=== PATIENT | female | born 2005 | race Caucasian/White ===

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

== ENCOUNTER 2024-05-03 11:13 | Emergency (ER) | payer BC, SELFPAY ==
[2024-05-03 11:45] VITALS: BP 135/86; PULSE 97; RESP 18; TEMP 36.9; O2SAT 98; BMI 38.8
--- NOTE | 2024-05-03 11:54 | ED_ITS ---
Discharge Plan Disposition Patient Disposition: Home, Self-Care Condition: Good Prescriptions Prescriptions: New azithromycin [Zithromax Z-Will] 250 mg tablet See Rx Instructions .ROUTE .COMPLEX 5 Days Qty: 6 0RF Rx Instructions: For 250 mg dose pack: take 500 mg today (day 1), then 250 mg for 4 days (days 2-5) No Action Kyleena 17.5 mcg/24 hr (5 yrs) 19.5 mg intrauterine device 1 device intrauterine ONCE aripiprazole [Abilify] 5 mg tablet 10 mg PO DAILY Referrals Follow up/Referrals: Nina Melara APRN [Primary Care Provider] - See instructions Activity Restrictions/Add. Instructions Additional Instructions/Restrictions: *Monitor Temp, Over the counter Motrin or Tylenol as directed/as needed Tylenol every 4 hours and Motrin every 6 hours (as long as your family doctor has told you that you can take it) for fever or pain. and straight to ER if unable to lower temp less than 101.0 after medication given *Warm salt water gargles may help to soothe the throat *Throat Lozenges? *Warm fluids like tea with honey may help to soothe the throat? *Sleep elevated *Humidifier/Vaporizer Your throat swab was sent for culture. Those results are typically sent to your primary care. Be sure to follow up in 2-3 days with your family doctor/primary care physician if no improvement so they can review those result and treat if necessary. If you don?t have a primary care doctor, I recommend you get one but in the mean time, you will have to return to a walk in clinic Follow up IMMEDIATELY for new or worsening symptoms or no Noticeable improvement over the next 48-72 hours. 911 for difficulty breathing or swallowing Clinical Impressions Clinical Impression: Pharyngitis Qualifiers: Pharyngitis/tonsillitis etiology: unspecified etiology Qualified Code(s): J02.9 - Acute pharyngitis, unspecified Instructions Patient Instructions: Sore Throat, Azithromycin Print Language Print Language: [place]ian Discharge ED Provider: Silvana Us [facility] General Stated complaint: sore throat, fever, abd pain, B/A, H/A Time Seen by Provider: 05/03/24 11:54 History of Present Illness Provider Complaint: Patient states that she hasnt felt well for several days with sore throat, headache, body aches, upset stomach and over all not feeling well States that her throat has continued to get worse and hurts when she swallows so today when it was still bothering her she came in to get it checked feels like she has strep throat Related Data Home Medications ?Medication ?Instructions ?Recorded ?Confirmed aripiprazole 5 mg tablet (Abilify) 10 mg PO DAILY Anxiety 11/03/23 05/03/24 levonorgestrel 17.5 mcg/24 hr (up 1 device intrauterine ONCE 11/03/23 05/03/24 to 5 yrs) 19.5mg intrauterine device (Kyleena) Previous Rx's ?Medication ?Instructions ?Recorded azithromycin 250 mg tablet See Rx Instructions PO .COMPLEX 5 05/03/24 (Zithromax Z-Will) days #6 tabs Allergies Allergy/AdvReac Type Severity Reaction Status Date / Time amoxicillin Allergy Verified 11/03/23 11:18 Penicillins Allergy Verified 11/03/23 11:18 [facility] Disclaimer: The information contained in this section may have been updated after the patient was seen, as this information can be updated by other users. Medical History (Updated 05/03/24 @ 12:08 by Silvana Us APRN) Pelvic pain in female IUD check up Encounter for IUD insertion Dysmenorrhea Abnormal uterine bleeding Surgical History [place] teeth removed Family History Other Diabetes Hyperlipidemia Social History Smoking Status: Never smoker alcohol intake: never current occupational status: student Travel in the last 8 weeks: None Have you lived/traveled outside [place] in past 30 days?: No Contact w/someone who lives/traveled outside [place] past 30 days?: No Exposure to someone with infectious disease in past 14 days?: No Do you have a fever (greater than 100.4 F or 38 C)?: Yes Have you tested positive for COVID-19: No Exposed to someone with COVID-19 in past 14 days?: No Do you have a sore throat?: Yes Do you have a cough?: Yes Do you have any weakness?: No Do you have any diarrhea?: No Are you experiencing any unusual bleeding?: No Do you have any muscle aches/pain?: Yes Do you have any abdominal pain?: Yes Are you experiencing loss of taste or smell?: No ROS Obtained: Yes All systems reviewed & no additional complaints except as documented and Yes Systems reviewed as appropriate & no additional complaints except as documented Constitutional Constitutional: Reports system reviewed and no additional complaints, except as documented, Reports as per HPI, Reports body ache, Reports chills and Reports headache(s) ENT Ears, Nose, Mouth, and Throat: Reports system reviewed and no additional complaints, except as documented, Reports as per HPI, Reports headache(s) and Reports sore throat Cardiovascular Cardiovascular: Reports system reviewed and no additional complaints, except as documented and Reports as per HPI Respiratory Respiratory: Reports system reviewed and no additional complaints, except as documented and Reports as per HPI Gastrointestinal Gastrointestingal: Reports system reviewed and no additional complaints, except as documented, as per HPI and nausea Neurologic Neurologic: Reports headache(s) Physical Exam General General appearance: alert and in no apparent distress ENT ENT exam: Present mucous membranes moist Expanded ENT Exam Nose exam: Absent sinus tenderness Throat exam: Present tonsillar erythema Respiratory Respiratory exam: Present normal lung sounds bilaterally; Absent respiratory distress or wheezes Cardiovascular Cardiovascular exam: Present regular rate, normal rhythm and normal heart sounds Abdominal Exam Abdominal exam: Present soft and normal bowel sounds; Absent distention, tenderness, guarding or rebound Neurological Exam Neurological exam: Present alert, oriented X3 and normal gait Medical Decision Making Medical Records Screening: Per USPSTF and CDC recommendations, given the prevalence of disease in our region, it is our hospital?s policy to screen for HIV and viral Hepatitis for all patients aged 18 and over and those with ongoing risk factors. Javan Inquiry Pt receiving controlled substance: No Javan was queried for this patient: No Lab Data Lab results reviewed: Yes I reviewed the patient's lab results.
[2024-05-03 12:07] LABS: UTC Influenza A Antigen Negative (Negative); UTC Influenza B Antigen Negative (Negative); UTC Strep Screen (Rapid) Negative (Negative)
[2024-05-03 12:08] VITALS: BP 135/86; PULSE 97; RESP 18; TEMP 36.9; O2SAT 98
== END 2024-05-03 12:10 | disposition home or self-care (01) ==
PROVIDERS: Emergency Provider Nurse Practitioner; PCP Nurse Practitioner Family
DX: J02.9 Acute pharyngitis, unspecified (principal)
CPT/HCPCS: 87804; 87880; 99213; G0381

== ENCOUNTER 2024-08-24 07:44 | Outpatient (CLI) | payer BC, SELFPAY ==
--- NOTE | 2024-08-24 08:00 | US_ITS ---
PROCEDURE: US TRANSVAGINAL CLINICAL INDICATION: Needs for IUD placement/pelvic pain COMPARISON: CT CT ABDOMEN PELVIS W CON from 07/02/2022 FINDINGS: Transvaginal sonographic images of the pelvis were obtained. UTERUS: 6.9 cm x 5.2cmx 3.6 cm retroverted with a combined endometrial thickness of 2.8mm. There is an IUD within the uterine cavity in the correct position. There is a small amount of fluid in the lower uterine segment. LEFT OVARY: 3.4cmx1.7x1.9cm with a volume of 5.7ml. There are multiple small peripheral follicles giving the ovary a polycystic appearance. RIGHT OVARY: 3.8 cmx 2.2cmx2.2cm with a volume of 9.7ml. There appears to be a corpus luteum in the right ovary. It measures 1.7 cm. There are multiple small peripheral follicles. Both ovaries are seen and appear polycystic . Doppler flow to both ovaries are seen. There is no fluid in the cul-de-sac. IMPRESSION: 1. Retroverted uterus normal in shape and size. There is an IUD within the uterine cavity in the correct position. 2. Both ovaries are seen and appear polycystic. There is a corpus luteum in the right ovary. 3. No fluid in the cul-de-sac. Dictated by: Carl Childers MD 08/24/2024 12:01 Carl Childers MD in OV 08/24/2024 12:01
== END 2024-08-24 23:59 | disposition home or self-care (01) ==
PROVIDERS: PCP Nurse Practitioner Family; Visit Provider Obstetrics & Gynecology
DX: R10.2 Pelvic and perineal pain (principal)
CPT/HCPCS: 76830

== ENCOUNTER 2024-10-20 12:30 | Outpatient (CLI) | payer BC, SELFPAY ==
--- OUTSIDE RECORDS SUMMARY | 2024-10-20 12:33 | XMS_ITS | Data Portability ---
Author Organization [facility] FIORELLA Zee CLIO CLOSED Address [address] [place] [address] Assessment No assessment recorded. Plan of Treatment Reminders Order Date Submit Date Provider Last Modified By Organization Details Last Modified Time Details Appointments None record ed. Lab None record ed. Referral None record ed. Procedures None record ed. Surgeries None record ed. Imaging None record ed. Medication Orders None record ed. Patient TargetsNo targets recorded. Patient InstructionsNo instructions recorded. Reason for Referral None Reported. Results Created Date Observation Date Name Description Value Unit Range Abnormal Flag Note LastModifiedBy Organization Detail LastModifiedTime 01/22/20 23 01/14/2023 MRI, knee, w/o contr ast No observ ation record ed. [address] [facility] [address], [place], [address], 01/25/2023 07:26:32 01/22/20 23 12/27/2022 MRI, knee, w/o contr ast No observ ation record ed. [address], [place], [address], 01/25/2023 07:26:46 Result Notes None recorded. Medical Equipment None Reported. Allergies Allergen ID Allergen Name Allergen Category Reaction Reaction Severity Criticality Documentation Date Start Date Code Code System Note Provider Name and Address Organization Details Recorded Time 116234 amoxicill in medicatio n Not available Not available Not available 01/26/2023 723 RxNorm Joann bhatti [facility] 15:11:34 Medications Name Sig Start Date Stop Date Status Note LastModified by Organization Details LastModified Time aripiprazole active Not Available Not Available Not Available Children's Zyrtec Allergy 1 mg/mL oral solution Bedtime 2005 active Freque ncy: hs;Med icatio n Descri ption: jon sapp; Dosage :1/2 teaspo on; Route: oral; refill s:3; Quanti ty:30 d syrup Not Available Not Available Not Available Vitals Date Recorded Body height Body mass index (BMI) [Percentile] Per age and sex Body mass index (BMI) Body weight Provider Name and Address Organization Details Last Updated DateTime 01/26/2023 170.18 cm 99 % 38.4 kg/m2 169583.1 3 g Joann Inga [facility] 01/26/2023 15:11:25 Social History None recorded. Functional Status None recorded. Mental Status None recorded. Family History Nothing Reported. Medical History No medical history recorded. Gynecological HistoryNo gynecological history recorded. Obstetrics History GPAL:G 0 P 0 0 0 0 Past Encounters Encounter ID Performer Location Encounter Start Date Encounter Closed Date Diagnosis/Indication Diagnosis SNOMED-CT Code Diagnosis ICD10 Code Diagnosis Note [id number] [facility] [address] 07/27/2016 20:23:45 07/27/2016 20:23:45 [id number] VALENCIA PAINTER MD [facility] [address] [place] [address] 01/26/2023 14:53:12 01/26/2023 16:05:27 Contusion of right knee [id number] S80.01XA Assessment : Contusion of lateral compartmen t of the right knee Plan: We discussed the anatomy of the knee and etiology of a bone contusion. Surgical interventi on is not indicated at this time. I reassured her that her knee is stable but I informed her can take anywhere from 4 weeks to 4 months to resolve. I recommende d using crutches for a few weeks to give her knee a break. I will refer her to PT. Health Concerns Section Related Observation LastModified by Organization Detai ls LastModified Time None Recorded Concern Status LastModified by Organization Details LastModified Time None Recorded Advance Directives Directive None Recorded Payers Insurance Date Sequence Insurance Name Policy Number Policy Pereira Covered Member ID Pereira Member ID Guarantor Name 01/26/2023 1 [place] [id number] Tiffany D Mel [id number] Monty eLal Notes Date Note Type Note Provider Name and Address Organization Details Recorded Time 01/26/2023 text/html PCP:SEEN FOR CONSULTATION AT THE REQUEST OF:WHAT: Right Knee. (possible rt tibia fx)WHEN: 1 month agoHOW: playing volleyball and she fell down. Her knee bent inwards and she felt a popSYMPTOMS: popping, grinding, pressure, numbness in foot with extension PAIN: 8 /10X-RAY:MRI: Patient has disc (report)PT: noNSAIDS: noINJECTION: no She states she was playing volleyball about 1 months ago when she fell down. Her knee bent laterally and she felt an associated pop. She reports popping and grinding. Her pain is located to the lateral aspect of her knee and his pressure like in nature. She reports right foot numbness with full extension. She presents wearing a knee brace at all times. She has been off of volleyball for about 2.5 weeks. VALENCIA PAINTER MD [address] [place], [address], [facility] 01/26/2023 16:17:48 OBGyn Episode No OBEpisode recorded.
--- OUTSIDE RECORDS SUMMARY | 2024-10-20 12:33 | XMS_ITS | Clinical Summary ---
Author Organization Healthcare Address [address] [place] [address] Care Team Providers Care Superintendent Meters Name Role Phone Nina Melara DIRECTOR OF EARLY CHILDHOOD EDUCATION Primary Care Provider [phone] Maura Jones DO Unavailable Allergies No known active allergies Medications hydrOXYzine pamoate (Vistaril) 25 MG capsule Take 25 mg by mouth 1 (one) time each day. Active omeprazole (PriLOSEC) [address] capsule Take 40 mg by mouth 1 (one) time each day. Do not crush or chew. Active FLUoxetine (PROzac) 20 MG capsule Take 20 mg by mouth 1 (one) time each day. Active Active Problems Problem Noted Date Diagnosed Date Anxiety and depression 10/20/2021 GERD (gastroesophageal reflux disease) 2 Family History Medical History Relation Name Comments No Known Problems Brother Diabetes Father Diabetes Mother Hyperlipidemia Mother Relation Name Status Comments Brother Father Mother Social History Tobacco Use Types Packs/Day Years Used Date Smoking Tobacco: Never Alcohol Use Standard Drinks/Week Comments Never 0 (1 standard drink = 0.6 oz pur e alcohol) Comments Unknown Sex and Gender Information Value Date Recorded Sex Assigned at Not on file Legal Sex Female 4:52 PM EST Gender Identity Not on file Sexual Orientation Not on file 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 file Not on file Not on file Last Filed Vital Signs Vital Sign Reading Time Taken Comments Blood Pressure 123/79 10/20/2021 12:09 PM EDT Pulse 69 10/20/2021 12:06 PM EDT Temperature - - Respiratory Rate 18 10/20/2021 12:0 6 PM EDT Oxygen Saturation - - Inhaled Oxygen Concentration - - Weight 106 kg (232 lb 12.9 oz) 10/21/19 12:06 PM EDT Height 172 cm (5' 7.72 ) 10/20/2021 12: 06 PM EDT Body Mass Index 35.69 10/20/2021 12:06 PM EDT Body Mass Index Percentile 98.16% 10/20 12:06 PM EDT Growth Chart: [facility] (Girls, 2- 20 Years) Plan of Treatment Health Maintenance Due Date Last Done Comments [facility]-Depression Screening 2004 [facility]-HIV Screening 2004 [facility]-Hepatitis C Screening 2004 [facility]-/Child/Adol SDOH Screenings 2004 Fluoride Varnish 07/10/2005 [facility]-IPV Vaccines (2 of 3 - 4-dose series) 02/15/2009 01/18/2009 [facility]-Obesity Intervention 2010 HPV Vaccines (3 - 2-dose series) 05/14/2016 01/15/2016, 11/12/2015 [facility]- SDOH Screenings 2022 [facility]-Adult SDOH Screenings 2022 [facility]-Hepatitis B Vaccines (1 of 3 - 19+ 3-dose series) 11/10/2023 [id number] Vaccine (3 - 2023- season) 2023 10/11/2020, 09/20/2020 [facility]-Influenza Vaccine (Seaso n Ended) 2024 01/18/2017, 01/15/2016, 01/18/2009 [facility]-DTaP,Tdap,and Td Vaccine s (2 - Td or Tdap) 11/11/2025 11/12/2015 [facility]-Zoster Vaccines (1 of 2) 2054, 11/11/2005 [facility]-Varicella Vaccines Completed 7, 11/11/2005 [facility]-HIB Vaccines Aged Out No longer e ligible based on patient's age to complete this topic [facility]-Hepatitis A Vaccines Aged Out No longer eligible based on patient's age to complete this topic [facility]-Pneumococcal Vaccine: Pediatrics (0 to 5 Years) and At-Risk Patients (6 to 49 Years) Aged Out No longer eligible b ased on patient's age to complete this topic [facility]-Rotavirus Vaccines Aged Out No lo nger eligible based on patient's age to complete this topic Insurance ANTHEM Care Teams Superintendent Meters Relationship Specialty Start Date End Date Nina Melara APRN [address] [facility] [address] [place] [address] PCP - General 06/30/21 Maura Jones DO [address] [place] [address] 06/30/21
[2024-10-20 12:37] VITALS: BMI 43.2
[2024-10-20 12:58] LABS: Basophils # 0.1 K/mm3 (0-0.2); Basophils % 0.8 % (0.1-2.0); Eosinophils # 0.1 Kmm3 (0.0-0.4); Eosinophils % 1.2 % (0.1-12.0); Hematocrit 37.3 % (37.0-47.0); Hemoglobin 12.8 g/dL (12.2-16.2); Immature Granulocytes # 0.03 10^3uL; Immature Granulocytes % 0.3 %; Lymphocytes # 3.7 K/mm3 (0.7-4.5); Lymphocytes % 34.9 % (10-50); Mean Corpuscular HGB Conc 34.3 g/dL (31.8-35.4); Mean Corpuscular Hemoglobin 29.7 pg (27.0-31.2); Mean Corpuscular Volume 86.5 fl (81-99); Mean Platelet Volume 10.7 fl (7.4-10.4); Monocytes # 0.9 K/mm3 (0.1-1.0); Monocytes % 8.2 % (1.7-9.3); Neutrophils # 5.8 K/mm3 (1.8-7.8); Neutrophils % 54.6 % (37.0-80.0); Nucleated Red Blood Cells # 0 10^3/uL; Nucleated Red Blood Cells % 0 %; Platelet Count 249 K/mm3 (142-424); Red Blood Count 4.31 M/mm3 (4.20-5.40); Red Cell Distribution Width-SD 37.7 fL; White Blood Count 10.6 K/mm3 (4.5-13.0)
[2024-10-20 13:01] LABS: Anion Gap 13.7 mEq/L (5-15); Blood Urea Nitrogen 11 mg/dl (7-17); Calcium 9.9 mg/dl (8.4-10.2); Carbon Dioxide 26 mmol/L (22.0-30.0); Chloride 101 mmol/L (98-107); Creatinine Clearance Estimated 147 mL/min (50-200); Estimated Glomerular Filt Rate 129 ml/min (>60); GFR (African American) 156 ML/MIN (>60); Glucose 90 mg/dl (74-100); Potassium 3.7 mmoL/L (3.5-5.1); Sodium 137 mmol/L (136-145)
[2024-10-20 13:13] LABS: HCG Qualitative, Serum Negative (Negative)
== END 2024-10-20 23:59 | disposition home or self-care (01) ==
LOC: PREOP 12:31
PROVIDERS: Nurse Anesthetist, Certified Registered; PCP Nurse Practitioner Family; Visit Provider Otolaryngology
DX: Z01.812 Encounter for preprocedural laboratory examination (principal)
CPT/HCPCS: 80048; 84703; 85025

== ENCOUNTER 2024-10-24 07:29 | Day surgery (SDC) | payer BC, SELFPAY ==
[2024-10-24] VITALS (9 sets, daily range): BP systolic 109–145; BP diastolic 53–79; PULSE 70–97; RESP 16–18; TEMP 36.2–36.4; O2SAT 97–100; BMI 41.5
[2024-10-24 08:29] LABS: Alanine Aminotransferase 46 U/L (12-78); Albumin Level 4.5 g/dl (3.5-5.0); Alkaline Phosphatase 68 U/L (38-126); Aspartate Amino Transferase 36 U/L (14-36); Bilirubin,Direct 0.3 mg/dl (0.0-0.4); Bilirubin,Indirect 0.3 mg/dL (0.0-0.9); Bilirubin,Total 0.6 mg/dl (0.2-1.3); Bilirubin,Unconjugated 0.4 mg/dL (0.0-1.1); Total Protein,Serum 7.2 g/dl (6.3-8.2)
[2024-10-24] MEDS: LACTATED RINGERS 1000ML 1,000 ML 25 ML IV (08:34)
[2024-10-24 08:37] LABS: NT Pro Brain Natriuretic Pep. < 20.0 pg/mL (0-125)
[2024-10-24 08:46] LABS: 25-OH Vitamin D, Total 54.1 ng/mL (30-100)
--- NOTE | 2024-10-24 08:55 | P.PNANES_ITS ---
[facility] Disclaimer: The information contained in this section may have been updated after the patient was seen, as this information can be updated by other users. Medical History Asthma Preoperative testing Enlarged tonsils Bleeding after intercourse Dyspareunia in female Pelvic pain in female IUD check up Encounter for IUD insertion Dysmenorrhea Abnormal uterine bleeding Surgical History Opolis teeth removed Family History Other Diabetes Hyperlipidemia Social History (Updated 10/24/24 @ 08:26 by Jayshree Dolan RN) Smoking Status: Never smoker alcohol intake: never substance use type: denies use current occupational status: employed and student Travel in the last 8 weeks?: Outside the [facility] Anesthesia Checklist Patient Identification Patient Identification: Arm Band and Verbal (Name & ) Structural Data Admitted From: Home Planned Operative Procedure/s: T&A Consent for Planned Operative Procedure(s) Verified: Yes Verified Documents: Surgical Consent NPO Status Verified Time NPO: 00:00 Chart Verification Results Verified: HCG Additional verifications Anesthesia Reactions: No Hx Blood Transfusions: No Blood Transfusion Reaction: No Airway Assessment Mallampati Score:: Class II C-Spine Mobility Assessed: Yes TMJ Mobility Assessed: Yes Dentition: Good Dentition Neurological Assessment Level of Consciousness: Awake, Alert and Appropriate Hx Seizures: No Numbness or tingling in extremities: No Anesthesia Plan Anesthesia Risk discussed: Yes Anesthesia Plan: Verified ASA Class: II Anesthesia Type: General
[2024-10-24 09:18] LABS: Vitamin B12 477 pg/mL (239-931)
[2024-10-24] MEDS: BUPIVACAINE 0.5% W/EPI 1:200,000 30ML VIAL 30 ML IJ (09:44)
--- NOTE | 2024-10-24 10:09 | EXP.OP.NOTE ---
Date of procedure: 10/24/24 Pre-op Diagnosis:: Chronic tonsillitis, tonsillar hypertrophy Post-op Diagnosis:: Chronic tonsillitis, tonsillar hypertrophy Procedure performed:: Tonsillectomy Surgeon:: Blane Landaverde MD Anesthesia: COURTNEY Estimated blood loss (mL): 50 Operative findings:: 4+ enlarged inflamed tonsils, normal soft palate, no significant adenoid hypertrophy Operative note:: The patient was brought to the operating room and after adequate general anesthesia the mouth was draped in the usual sterile fashion and a McIvor mouthgag placed. Tonsillectomy was performed in the plane defined by the tonsillar capsule and superior constrictor muscle and this was done with electrocautery bilaterally. Hemostasis was established with suction Bovie and then the tonsillar fossa was infiltrated with half percent Marcaine with epinephrine. The soft palate was retracted and the nasopharynx was clear with no significant adenoid hypertrophy. The procedure was concluded. All counts correct. Blood loss minimal Condition: stable Disposition: PACU Complications:: No complications
--- NOTE | 2024-10-24 10:11 | P.PNANES_ITS ---
[facility] Anesthesia Record Part I Anesthesia Record I Intake, IV Amount: 400 Hydration: Adequate Estimated blood loss (mL): 5 Urine output (mL): 0 Blood Products used (#): none Blood Pressure: 123/67 SaO2: 97 Pulse Rate: 92 Airway Patency: Patent Respiratory Rate: 16 Temperature: 97.1 F Patient is:: Drowsy and Stable Stable to PACU at:: 10:10
[2024-10-24] MEDS: MEPERIDINE 50MG/ML 1ML SYRINGE 50 MG ×2 (10:25→10:35)
--- NOTE | 2024-10-24 13:45 | P.PNANES_ITS ---
[facility] Anesthesia Record Part II Anesthesia Record Part II Discharge Time: 10:40 Destination: Surgical Day Care (OP Surgery) PACU nurse assessment reviewed?: Yes Patient Condition:: Good Anesthesia Complications:: None Swallowing reflex intact?: Yes Airway Patency: Patent Cyanosis?: No Blood Pressure: 137/76 SaO2: 100 Respiratory Rate: 18 Pulse Rate: 86 Temperature: 97.1 F Mental Status: Alert & Oriented Pain level:: 3 Nausea and/or vomitting:: None Intake, IV Amount: 0 Hydration: Adequate
== END 2024-10-24 11:06 | disposition home or self-care (01) ==
PROVIDERS: Physician Assistant; PCP Nurse Practitioner Family; Visit Provider Otolaryngology
PROC: (CPT 42826; principal; 2024-10-24 09:30)
DX: J35.01 Chronic tonsillitis (principal); J45.909 Unspecified asthma, uncomplicated; Z86.19 Personal history of other infectious and parasitic diseases; Z79.899 Other long term (current) drug therapy; Z88.0 Allergy status to penicillin; Z97.5 Presence of (intrauterine) contraceptive device
CPT/HCPCS: 42826; 36415; 80076; 82306; 82607; 83880; J1100; J2003; J2175; J2250; J2405; J2704; J3010; J7120

== ENCOUNTER 2024-11-03 07:58 | Outpatient (CLI) | payer BC, SELFPAY ==
--- OUTSIDE RECORDS SUMMARY | 2024-11-03 08:00 | XMS_ITS | Data Portability ---
Author Organization [facility] FIORELLA Zee MIDDLES[place] CLOSED Address [address] [facility] [address] [place] [address] Assessment No assessment recorded. Plan of Treatment [...] contr ast No observ ation record ed. [address] [facility] [address], [place], [address], 01/25/2023 07:26:32 01/22/20 23 12/27/2022 MRI, knee, w/o contr ast No observ ation record ed. [address], [place], [address], 01/25/2023 07:26:46 Result Notes None recorded. Medical Equipment None Reported. Allergies Allergen ID Allergen Name Allergen Category Reaction Reaction Severity Criticality Documentation Date Start Date Code Code System Note Provider Name and Address Organization Details Recorded Time 447146 amoxicill in medicatio n Not available Not available Not available 01/26/2023 723 RxNorm Joann bhatti [facility] 15:11:34 Medications Name Sig Start Date Stop [...] 01/26/2023 170.18 cm 99 % 38.4 kg/m2 608230.1 3 g Joann Inga [facility] 01/26/2023 15:11:25 Social History None recorded. Functional Status None recorded. Mental Status None recorded. Family History Nothing Reported. Medical History No medical history recorded. Gynecological HistoryNo gynecological history recorded. Obstetrics History GPAL:G 0 P 0 0 0 0 Past Encounters Encounter ID Performer Location Encounter Start Date Encounter Closed Date Diagnosis/Indication Diagnosis SNOMED-CT Code Diagnosis ICD10 Code Diagnosis Note [id number] QM_[facility]PORTS [place] [address] 07/27/2016 20:23:45 07/27/2016 20:23:45 [id number] VALENCIA PAINTER MD [facility] [address] [address] 01/26/2023 14:53:12 01/26/2023 16:05:27 Contusion of right knee [id number] S80.01XA Assessment : Contusion of lateral compartmen [...] ID Guarantor Name 01/26/2023 1 [employer] [id number] Tiffany D Mel [id number] Le[place] Notes Date Note Type Note Provider Name [...] about 2.5 weeks. VALENCIA PAINTER MD [address] [place], [address], [facility] 01/26/2023 16:17:48 OBGyn Episode No OBEpisode recorded.
--- OUTSIDE RECORDS SUMMARY | 2024-11-03 08:00 | XMS_ITS | Encounter Summary ---
Author Organization [employer] ([place], [place], [place], [place]) Address [address] [place] [address] Care Team Providers Care Retail Customer Service Specialist Name Role Phone Unavailable Primary Care Provider Unavailabl e Encounter Details Date Type Department Care Team (Late st Contact Info) Description 08/27/2020 Transcribed Document [facility] [place] [facility] [place] [address] ProviderJame MD [address], [place] [id number] Social History Tobacco Use Types Packs/Day Years Used Date Smoking Tobacco: Never Assessed Comments Unknown Sex and Gender Information Value Date Recorded Sex Assigned at Not on file Legal Sex Female 7:17 PM CDT Gender Identity Not on file Sexual Orientation Not on file documented as of this encounter Miscellaneous Notes * Cerner Conversion Note - Jame ProviderMD - 08/27/2020 9:50 AM CDT [facility] Endo IntraOp Summary Primary Physician: NUBIA DACOSTA MD-GAE Finalized Date/Time: 08/27/20 09:56:41 Pt. Name: MONTY RANDHAWA/Sex: 2005 Female Med Rec #: [id number] Physician: NUBIA DACOSTA MD-GAE Financial #: [id number] Pt. Type: O Room/Bed: END/ Admit/Disch: 08/27/20 07:55:00 - Institution: [facility] Endo - Case Attendance Entry 1 Entry 2 Entry 3 Case Attendee NUBIA DACOSTA MD-GAE CORNEA, MD ARSLAN-CATARINA WANG INSPECTOR FUEL HOSE Role Performed Surgeon/Proceduralist, Anesthesiologist of INSPECTOR FUEL HOSE/Nurse Country Printer Apprentice First Record Time In 08/27/20 09:50:00 08/27/20 09:30:00 08/27/20 09:30:00 Time Out 08/27/20 09:59:00 08/27/20 09:59:00 08/27/20 09:59:00 Procedure Esophagogastroduodenosco Esophagogastroduodenosco Esophagogastroduodenosco py, Esophageal Biopsy, py, Esophageal Biopsy, py, Esophageal Biopsy, Duodenal Biopsy, Duodenal Biopsy, Duodenal Biopsy, Gastric Biopsy Gastric Biopsy Gastric Biopsy Other Attendee Superficial Wound Closed By: Last Modified By: Angelina Apple, Angelina Ocampo RN Springate, Samantha, RN 08/27/20 09:56:20 08/27/20 09:56:20 08/27/20 09:56:20 Entry 4 Entry 5 Case Attendee Angelina Apple, LILLY MOLINA Role Performed Warble Saw Operator, First Scrub, First Time In 08/27/20 09:30:00 08/27/20 09:30:00 Time Out 08/27/20 09:59:00 08/27/20 09:59:00 Procedure Esophagogastroduodenosco Esophagogastroduodenosco py, Esophageal Biopsy, py, Esophageal Biopsy, Duodenal Biopsy, Duodenal Biopsy, Gastric Biopsy Gastric Biopsy Other Attendee Superficial Wound Closed By: Last Modified By: Angelina Apple RN Springate, Samantha, RN 08/27/20 09:56:20 08/27/20 09:56:20 [facility] Endo - Case Attendance Audit 08/27/20 09:56:20 Aboriginal Education Worker Coordinator: [id number] Modifier: [id number] <+> Time Out 1 <*> Procedure Esophagogastroduodenoscopy, Esophageal Biopsy, Duodenal Biopsy, Gastric Biopsy 2 <+> Time Out 2 <*> Procedure Esophagogastroduodenoscopy, Esophageal Biopsy, Duodenal Biopsy, Gastric Biopsy 3 <+> Time Out 3 <*> Procedure Esophagogastroduodenoscopy, Esophageal Biopsy, Duodenal Biopsy, Gastric Biopsy 4 <+> Time Out 4 <*> Procedure Esophagogastroduodenoscopy, Esophageal Biopsy, Duodenal Biopsy, Gastric Biopsy 5 <+> Time Out 5 <*> Procedure Esophagogastroduodenoscopy, Esophageal Biopsy, Duodenal Biopsy, Gastric Biopsy 08/27/20 09:54:03 Aboriginal Education Worker Coordinator: [id number] Modifier: [id number] 1 <*> Procedure Esophagogastroduodenoscopy 2 <*> Procedure Esophagogastroduodenoscopy 3 <*> Procedure Esophagogastroduodenoscopy 4 <*> Procedure Esophagogastroduodenoscopy 5 <*> Procedure Esophagogastroduodenoscopy 08/27/20 09:50:22 Aboriginal Education Worker Coordinator: [id number] Modifier: [id number] 1 <*> Time In 08/27/20 09:30:00 1 <*> Procedure Esophagogastroduodenoscopy 08/27/20 09:36:40 Aboriginal Education Worker Coordinator: [id number] Modifier: [id number] 1 <*> Procedure Esophagogastroduodenoscopy 2 <+> Time In 2 <*> Procedure Esophagogastroduodenoscopy 3 <+> Time In 3 <*> Procedure Esophagogastroduodenoscopy 4 <+> Time In 4 <*> Procedure Esophagogastroduodenoscopy 5 <+> Time In 5 <*> Procedure Esophagogastroduodenoscopy 08/27/20 09:33:16 Aboriginal Education Worker Coordinator: [id number] Modifier: [id number] 1 <+> Time In 1 <*> Procedure Esophagogastroduodenoscopy <+> 2 Case Attendee <+> 2 Role Performed <+> 2 Procedure <+> 3 Case Attendee <+> 3 Role Performed <+> 3 Procedure <+> 4 Case Attendee <+> 4 Role Performed <+> 4 Procedure <+> 5 Case Attendee <+> 5 Role Performed <+> 5 Procedure [facility] Endo - Case times Entry 1 Patient In Room Time 08/27/20 09:30:00 Out Room Time 08/27/20 09:59:00 Anesthesia Start Time 08/27/20 09:30:00 Stop Time 08/27/20 09:59:00 Surgery / Procedure Times Start Time 08/27/20 09:50:00 Stop Time 08/27/20 09:56:00 Last Modified By: Angelina Apple RN 08/27/20 09:56:19 [facility] Endo - Case times Audit 08/27/20 09:56:19 Aboriginal Education Worker Coordinator: [id number] Modifier: [id number] <+> 1 Out Room Time <+> 1 Stop Time <+> 1 Stop Time 08/27/20 09:51:07 Aboriginal Education Worker Coordinator: [id number] Modifier: [id number] <+> 1 Start Time [facility] Endo - Cultures and Spec Summary Entry 1 Cultrures and Specimens Specimen Ordered: Yes Test(s) Routine/Path-Lab Requested/Final Disposition Last Modified By: Angelina Apple RN 08/27/20 09:54:10 [facility] Endo - Delays Entry 1 Delay Reason Other Duration 0 Minute(s) Last Modified By: Angelina Apple RN 08/27/20 09:35:16 [facility] Endo - Departure from OR Entry 1 Integumentary Assessment Integumentary WDL Assessment WDL Transfer/Handoff Transfer to PACU Phase I Post-op Transport Stretcher/Gurney Via Patient Transport Angelina Apple, Accompanied by RN, CATARINA CALVILLO CRNA Last Modified By: Angelina Apple RN 08/27/20 09:35:20 [facility] Endo - Endoscopy Details Entry 1 Abdomen Procedure Soft, Non-Tender Assessment Procedure Abdomen 08/27/20 09:30:00 Assessment D/T Radio Frequency Ablation Abdominal Pressure Last Modified By: Angelina Apple RN 08/27/20 09:35:34 [facility] Endo - Fire Risk Assessment Entry 1 Fire Info Surgical Site or 1- Yes Incision Above the Xyphoid Open O2 Source 1- Yes (Mask or Cannula) Available Ignition 1- Yes (ESU, Laser, Light Source) Fire Risk 3 Assessment Score Fire Score Fire Risk Yes Assessment Complete Fire Risk Angelina Apple RN Assessment Verified By Fire Risk 08/27/20 09:30:00 Assessment Verified Date/Time Fire Risk High Risk Protocol Yes Implemented Standard Fire Yes Safety Precautions Followed Last Modified By: Angelina Apple RN 08/27/20 09:35:41 [facility] Endo - General Case Master Dyer 1 Case Information OR Endo 03 [facility] Case Level 1 Room Verified Yes Wound Class II - Clean-Contaminated Specialty Gastroenterology Anesthesia Type MAC ASA Class 2 Diagnosis Preop Diagnosis Abdominal pain, GERD Postop Same As Preop No Postop Diagnosis Normal Last Modified By: Angelina Apple RN 08/27/20 09:56:29 [facility] Endo - General Case Data Audit 08/27/20 09:56:29 Aboriginal Education Worker Coordinator: [id number] Modifier: [id number] <+> 1 Postop Same As Preop <+> 1 Postop Diagnosis [facility] Endo - Intraoperative Assessment Entry 1 Valid History / Yes Physical in Chart Preoperative Yes Checklist Reviewed/Evaluated Patient is Latex No Sensitive Level of WDL Consciousness (WDL = Alert, Oriented to Person, Place, and Time) Last Modified By: Angelina Apple RN 08/27/20 09:36:09 [facility] Endo - Intraoperative Equipment Entry 1 Equipment Intraop Monitoring Electrocardiogram Three lead placement (ECG) Electrode Placement Blood Pressure Arm, left upper Location Pulse Oximeter Hand, right Probe Site Antiembolic Devices Scopes Flexible Endoscopes Gastroscope Used Scope Serial B Number/Identificatio n Number Photo/Video Documentation Photo Yes Video No Last Modified By: Angelina Apple RN 08/27/20 09:36:19 [facility] Endo - Patient Positioning Entry 1 Procedure Esophagogastroduodenosco py, Esophageal Biopsy, Duodenal Biopsy, Gastric Biopsy Body Position Lateral, right side up Left Arm Position Resting at side Right Arm Position Resting at side Left Leg Position Other Right Leg Position Other Position Comments Right leg over left leg, uncrossed Feet Uncrossed Yes Pressure Points Yes Checked Positioned By CATARINA CALVILLO CRNA Position Verified Positioning Yes Verified by Surgeon Last Modified By: Angelina Apple RN 08/27/20 09:54:04 [facility] Endo - Patient Positioning Audit 08/27/20 09:54:04 Aboriginal Education Worker Coordinator: [id number] Modifier: [id number] 1 <*> Procedure Esophagogastroduodenoscopy [facility] Endo - Sign In Entry 1 Patient, Site, Yes Procedure Identified Surgical Consent Yes Confirmed Surgical Site N/A Marked by person performing procedure Airway Hypothermia Risk No Warming Measures No Taken Last Modified By: Angelina Apple RN 08/27/20 09:36:38 [facility] Endo - Sign Out Entry 1 RN Confirmation Surgical Yes Procedure(s) Identified Instrument, Sponge N/A and Sharps Counts Correct/Documented Equipment Problems N/A Documented Specimen Labeled Yes Correctly Urinary Catheter N/A Documented in IView Safety Checklist Yes Elements Complete? RN Sign Out Angelina Apple RN Signature RN Sign Out 08/27/20 09:59:00 Signature Date/Time Plan of Care Outcome - Fire Risk OUTCOME STATEMENT: Goal met Patient is free from injury related to surgical fire Plan of Care Outcome - Pt Positioning OUTCOME STATEMENT: Goal met Absence of signs and symptoms of positioning injury. Plan of Care Outcome - Skin Prep OUTCOME STATEMENT: Goal met Intraoperative care is consistent with measures to prevent infection Plan of Care Outcome - Xray/Images OUTCOME STATEMENT: N/A Absence of observable signs or symptoms of radiation injury Plan of Care Outcome - Counts OUTCOME STATEMENT: N/A Absence of signs and symptoms of injury related to extraneous objects Last Modified By: Angelina Apple RN 08/27/20 09:56:38 [facility] Endo - Surgical Procedures Entry 1 Entry 2 Entry 3 Procedure Esophagogastroduodenosco Esophageal Biopsy Duodenal Biopsy py Modifiers Additional proximal and distal Procedure Description Primary Procedure Yes No No Primary Surgeon NUBIA DACOSTA MD-GAE MARTIN, KATHLEEN, MD-GAE MARTIN, KATHLEEN, MD-GAE Start 08/27/20 09:50:00 08/27/20 09:50:00 08/27/20 09:50:00 Stop 08/27/20 09:56:00 08/27/20 09:56:00 08/27/20 09:56:00 Physician States Cecum Reached Anesthesia Type MAC MAC [facility] [place] Specialty Gastroenterology Gastroenterology Gastroenterology Wound Class II - Clean-Contaminated II - Clean-Contaminated II - Clean-Contaminated Last Modified By: Angelina Apple, Angelina Ocampo RN Springate, Samantha, RN 08/27/20 09:56:30 08/27/20 09:56:30 08/27/20 09:56:30 Entry 4 Procedure Gastric Biopsy Modifiers Additional Procedure Description Primary Procedure No Primary Surgeon NUBIA DACOSTA MD-GAE Start 08/27/20 09:50:00 Stop 08/27/20 09:56:00 Physician States Cecum Reached Anesthesia Type [facility] [place] Specialty Gastroenterology Wound Class II - Clean-Contaminated Last Modified By: Angelina Apple RN 08/27/20 09:56:30 [facility] Endo - Surgical Procedures Audit 08/27/20 09:56:30 Aboriginal Education Worker Coordinator: [id number] Modifier: [id number] <+> 1 Stop <+> 2 Stop <+> 3 Stop <+> 4 Stop 08/27/20 09:53:57 Aboriginal Education Worker Coordinator: [id number] Modifier: [id number] <+> 1 Start <+> 2 Procedure <+> 2 Primary Procedure <+> 2 Primary Surgeon <+> 2 Specialty <+> 2 Start <+> 2 Wound Class <+> 2 Anesthesia Type <+> 2 Additional Procedure Description <+> 3 Procedure <+> 3 Primary Procedure <+> 3 Primary Surgeon <+> 3 Specialty <+> 3 Start <+> 3 Wound Class <+> 3 Anesthesia Type <+> 4 Procedure <+> 4 Primary Procedure <+> 4 Primary Surgeon <+> 4 Specialty <+> 4 Start <+> 4 Wound Class <+> 4 Anesthesia Type 08/27/20 09:36:52 Aboriginal Education Worker Coordinator: [id number] Modifier: [id number] 1 <*> Procedure Esophagogastroduodenoscopy 1 <+> Specialty [facility] Endo - Time Out Entry 1 Procedure to be Esophagogastroduodenosco Performed py, Esophageal Biopsy, Duodenal Biopsy, Gastric Biopsy Time Out Time Out Pause Time 08/27/20 09:50:00 All activity Yes suspended (unless life threatening emergency) Team Verbally Correct patient Confirms Information identity, Consent form is present and accurate, Agreement on the procedure to be done, Correct patient position, Performed before each procedure if multiple procedures, Reconcile problems if responses among team members differ Antibiotic N/A Prophylaxis Administered Or In Progress Within the Last 60 Minutes Beta Al N/A Administered Venous N/A Thromboembolism Prophylaxis Required Anticipated Critical Events Surgeon None expected Last Modified By: Angelina Apple RN 08/27/20 09:54:04 [facility] Endo - Time Out Audit 08/27/20 09:54:04 Aboriginal Education Worker Coordinator: [id number] Modifier: [id number] 1 <*> Procedure to be Performed Esophagogastroduodenoscopy Case Comments <None> Finalized By: Angelina Apple RN Document Signatures Signed By: Angelina Apple RN 08/27/20 09:56 Electronically signed by [facility] Conversion Director Mobile Cerner at 08/12/2022 8:25 AM CDT documented in this encounter Plan of Treatment Not on file documented as of this encounter Visit Diagnoses Not on filedocumented in this encounter
--- OUTSIDE RECORDS SUMMARY | 2024-11-03 08:00 | XMS_ITS | Encounter Summary ---
Author Organization [employer] ([place], [place], [place], [place]) Address [address] [place] [address] Care Team Providers Care Chip Applying Machine Tender Name Role Phone Unavailable Primary Care Provider Unavailabl e Encounter Details Date Type Department Care Team (Late st Contact Info) Description 08/27/2020 Transcribed Document [facility] [place] [facility] [place] [address] ProviderJame MD [address] [place] [address] Social History Tobacco Use Types Packs/Day Years Used Date Smoking Tobacco: Never Assessed Comments Unknown Sex and Gender Information Value Date Recorded Sex Assigned at Not on file Legal Sex Female 7:17 PM CDT Gender Identity Not on file Sexual Orientation Not on file documented as of this encounter Miscellaneous Notes * Cerner Conversion Note - Jame ProviderMD - 08/27/2020 10:08 AM CDT Patient Education Materials Follows: General Anesthesia, Adult, Care After This sheet gives you information about how to care for yourself after your procedure. Your health care provider may also give you more specific instructions. If you have problems or questions, contact your health care provider. What can I expect after the procedure? After the procedure, the following side effects are common: ??? Pain or discomfort at the IV site. ??? Nausea. ??? Vomiting. ??? Sore throat. ??? Trouble concentrating. ??? Feeling cold or chills. ??? Weak or tired. ??? Sleepiness and fatigue. ??? Soreness and body aches. These side effects can affect parts of the body that were not involved in surgery. Follow these instructions at home: For at least 24 hours after the procedure: ??? Have a responsible adult stay with you. It is important to have someone help care for you until you are awake and alert. ??? Rest as needed. ??? Do not: ? Participate in activities in which you could fall or become injured. ? Drive. ? Use heavy machinery. ? Drink alcohol. ? Take sleeping pills or medicines that cause drowsiness. ? Make important decisions or sign legal documents. ? Take care of children on your own. Eating and drinking ??? Follow any instructions from your health care provider about eating or drinking restrictions. ??? When you feel hungry, start by eating small amounts of foods that are soft and easy to digest (bland), such as toast. Gradually return to your regular diet. ??? Drink enough fluid to keep your urine pale yellow. ??? If you vomit, rehydrate by drinking water, juice, or clear broth. General instructions ??? If you have sleep apnea, surgery and certain medicines can increase your risk for breathing problems. Follow instructions from your health care provider about wearing your sleep device: ? Anytime you are sleeping, including during daytime naps. ? While taking prescription pain medicines, sleeping medicines, or medicines that make you drowsy. ??? Return to your normal activities as told by your health care provider. Ask your health care provider what activities are safe for you. ??? Take [id number] and prescription medicines only as told by your health care provider. ??? If you smoke, do not smoke without supervision. ??? Keep all follow-up visits as told by your health care provider. This is important. Contact a health care provider if: ??? You have nausea or vomiting that does not get better with medicine. ??? You cannot eat or drink without vomiting. ??? You have pain that does not get better with medicine. ??? You are unable to pass urine. ??? You develop a skin rash. ??? You have a fever. ??? You have redness around your IV site that gets worse. Get help right away if: ??? You have difficulty breathing. ??? You have chest pain. ??? You have blood in your urine or stool, or you vomit blood. Summary ??? After the procedure, it is common to have a sore throat or nausea. It is also common to feel tired. ??? Have a responsible adult stay with you for the first 24 hours after general anesthesia. It is important to have someone help care for you until you are awake and alert. ??? When you feel hungry, start by eating small amounts of foods that are soft and easy to digest (bland), such as toast. Gradually return to your regular diet. ??? Drink enough fluid to keep your urine pale yellow. ??? Return to your normal activities as told by your health care provider. Ask your health care provider what activities are safe for you. This information is not intended to replace advice given to you by your health care provider. Make sure you discuss any questions you have with your health care provider. Document Revised: 04/15/2018 Document Reviewed: 11/26/2017 [employer] Patient Education ? 2020 [employer]. ESOPHAGOGASTRODUODENOSCOPY Care After Read the instructions outlined below and refer to this sheet over the next few days. These discharge instructions provide you with general information on caring for yourself after you leave the hospital. Your doctor may also give you specific instructions. While your treatment has been planned according to the most current medical practices available, unavoidable complications occasionally occur. If you have any problems or questions after discharge, call your doctor. HOME CARE INSTRUCTIONS: ACTIVITY: ?? You may resume your regular activity tomorrow, but move at a slower pace for the next 24 hours. ?? Take frequent rest periods for the next 24 hours. ?? Walking will help get rid of the air and reduce the bloated feeling in your belly (abdomen). ?? No driving for 24 hours because of the medication (sedation) used during the test. ?? You may shower. ?? Do not sign any important legal documents or operate any machinery for 24 hours (because of the sedation used during the test). NUTRITION: ?? Drink plenty of fluids. ?? You may resume your normal diet or as instructed by your doctor ?? Begin with a light meal and progress to your normal diet. Heavy or fried foods are harder to digest and may make you feel sick to your stomach (nauseated). ?? Avoid alcoholic beverages for 24 hours or as instructed. MEDICATIONS: ?? You may resume your normal medications unless your doctor tells you otherwise. WHAT TO EXPECT TODAY: ?? Some feelings of bloating in the abdomen. ?? Excessive burping today and passage of more gas than usual. ?? A sore throat can be normal. Use throat lozenges or gargle with warm salt water and drink plenty of fluids. FINDING OUT THE RESULTS OF YOUR TEST: ?? Not all test results are available during your visit. If you had biopsies or other tests done during your procedure, you can make an appointment with your doctor to get the results. Sometimes you may be instructed to call the doctor's office for your results. It is important for you to follow up on all of your test results. SEEK IMMEDIATE MEDICAL CARE IF: ?? You cannot eat or drink. ?? You have worsening throat or chest pain. ?? You have dizziness, lightheadedness, or you faint. ?? You have severe nausea or vomiting. ?? You have a fever greater than 101. ?? You have chills. ?? You have severe abdominal pain or discomfort that gets worse throughout the day. ?? You have black, tarry, or bloody stools. documented in this encounter Plan of Treatment Not on file documented as of this encounter Visit Diagnoses Not on filedocumented in this encounter
--- OUTSIDE RECORDS SUMMARY | 2024-11-03 08:00 | XMS_ITS | Encounter Summary ---
Author Organization [email or web address] ([place], [place], [place], [place]) Address [address] [place] [address] Care Team Providers Care High Density Press Operator Name Role Phone Unavailable Primary Care Provider Unavailabl e Encounter Details Date Type Department Care Team (Late st Contact Info) Description 08/27/2020 Transcribed Document [facility] [place] [facility] [place] [address] ProviderJame MD [address] [id number] Social History Tobacco Use Types Packs/Day Years Used Date Smoking Tobacco: Never Assessed Comments Unknown Sex and Gender Information Value Date Recorded Sex Assigned at Not on file Legal Sex Female 7:17 PM CDT Gender Identity Not on file Sexual Orientation Not on file documented as of this encounter Miscellaneous Notes * Cerner Conversion Note - Historical ProviderMD - 08/27/2020 9:00 AM CDT TAWANDA Torres PreOp Summary Primary Physician: NUBIA DACOSTA MD-GAE Finalized Date/Time: 08/27/20 08:42:49 Pt. Name: MONTY RANDHAWA/Sex: 2005 Female Med Rec #: [id number] Physician: NUBIA DACOSTA MD-GAE Financial #: [id number] Pt. Type: O Room/Bed: END/ Admit/Disch: 08/27/20 07:55:00 - Institution: [facility] Melissa PreOp Case Times Entry 1 In Preop 08/27/20 08:30:00 Ready for Holding n/a Room Patient Ready for 08/27/20 08:42:00 Surgery Patient Out of Preop 08/27/20 08:42:00 Patient Out of n/a Holding Room Last Modified By: Olivia Damon RN 08/27/20 08:42:47 Finalized By: Olivia Damon RN Document Signatures Signed By: Olivia Damon RN 08/27/20 08:42 documented in this encounter Plan of Treatment Not on file documented as of this encounter Visit Diagnoses Not on filedocumented in this encounter
--- OUTSIDE RECORDS SUMMARY | 2024-11-03 08:00 | XMS_ITS | Clinical Summary ---
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 on file [...] 98.16% 10/20 12:06 PM EDT Growth Chart: [facility] (Girls, 2- 20 Years) Plan of Treatment Health Maintenance Due Date Last Done Comments [facility]-Depression Screening 2004 [facility]-HIV Screening 2004 [facility]-Hepatitis C Screening 2004 [facility]-/Child/Adol SDOH Screenings 2004 Fluoride Varnish 07/10/2005 [facility]-IPV Vaccines (2 of 3 - 4-dose series) 02/15/2009 01/18/2009 HPV Vaccines (3 - 2-dose series) 05/14/2016 01/15/2016, 11/12/2015 [facility]- SDOH Screenings 2022 [facility]-Adult SDOH Screenings 2022 [facility]-Hepatitis B Vaccines (1 of 3 - 19+ 3-dose series) 11/10/2023 [id number] Vaccine (3 - 2023- season) 2023 10/11/2020, 09/20/2020 [facility]-Influenza Vaccine (#1) 12/25/202401/18, 01/15/2016, 01/18/2009 [facility]-DTaP,Tdap,and Td Vaccines (2 - Td or Tdap) 11/11/2025 11/12/2015 [...] complete this topic Insurance ANTHEM Care Teams Bullet Lubricant Mixer Relationship Specialty Start Date End Date Nian Melara APRN [address] [facility] [address] [place], [place] [address] PCP - General 06/30/21 Maura Jones DO [address] [place], [place] [id number] 06/30/21
--- OUTSIDE RECORDS SUMMARY | 2024-11-03 08:00 | XMS_ITS | Encounter Summary ---
Author Organization [employer] ([place], [place], [place], [place]) Address [address] [place] [address] Care Team Providers Care Dairy Husbandry Teacher Name Role Phone Unavailable Primary Care Provider Unavailabl e Encounter Details Date Type Department Care Team (Late st Contact Info) Description 08/27/2020 Transcribed Document [facility] [place] [facility] [place] [address] ProviderJame MD [address] [place] [address] Social History Tobacco Use Types Packs/Day Years Used Date Smoking Tobacco: Never Assessed Comments Unknown Sex and Gender Information Value Date Recorded Sex Assigned at Not on file Legal Sex Female 7:17 PM CDT Gender Identity Not on file Sexual Orientation Not on file documented as of this encounter Miscellaneous Notes * Cerner Conversion Note - Jame ProviderMD - 08/27/2020 10:09 AM CDT [facility] [address] [place], [place] [id number] MONTY RANDHAWA :2005 Visit Time:08/27/2020 What to do next Instructions From Your Care Team Diet after Discharge: Resume usual diet as tolerated, Activity after Discharge: As tolerated, Rest and relax today, No strenuous activity Driving after Discharge: Do not drive for 24 hours May Return to Work/School: tomorrow If you had a biopsy or polyps removed today, then biopsy results will be mailed to your home in about 1 week. Follow-Up Appointments Follow Up with NUBIA DACOSTA MD-GAE When Where: [address] [place] [address]- Medications What How Much When Instructions Next Dose aluminum hydroxide-magnesium trisilicate (Gaviscon 80 mg-14.2 mg oral tablet, chewable) Four times a day (after meals and at bedtime) famotidine (Pepcid) pantoprazole (Protonix) Every Day Take your medications faithfully. Do NOT skip medication. Do NOT stop taking medications without the direction of a physician. Carry a list of your medications with you at all times, and take this medication list with you to your first follow up visit. Report any side effects. Avoid herbal remedies unless discussed with your physician. As part of your treatment plan, your physician may have prescribed a limited course of a controlled substance. This medication may be given to help people with moderate or severe pain or for other medical conditions, but there are risks involved with treatment. Common side effects may include nausea, constipation, drowsiness, sweating, itching, dry mouth, and rash. More serious side effects may include cognitive and motor impairment, like problems with thinking, concentrating, alertness, and movement (e.g. slowed reflexes), and driving and operating heavy machinery can be dangerous. It is important for you to talk to your physician if you have these side effects or questions. These controlled substances can produce physical dependence and be habit-forming if taken for an extended period of time, which means that the body has gotten used to them and may experience withdrawal symptoms if they are abruptly stopped. Withdrawal symptoms can include runny nose, sweating, goose bumps, diarrhea, abdominal cramping, rapid heartbeat, difficulty sleeping, and nervousness. Please dispose of unused and medications per pharmacy guidance. Education Materials General Anesthesia, Adult, Care After This sheet [...] activities are safe for you. ??? Take iajh-bog-lrnplol and prescription medicines only as told by [...] provider. Document Revised: 04/15/2018 Document Reviewed: 11/26/2017 Kayleen Patient Education ?? 2020 [employer]. ESOPHAGOGASTRODUODENOSCOPY Care After Read the instructions outlined [...] call your doctor. HOME CARE INSTRUCTIONS: ACTIVITY: ??? You may resume your regular activity tomorrow, but move at a slower pace for the next 24 hours. ??? Take frequent rest periods for the next 24 hours. ??? Walking will help get rid of the air and reduce the bloated feeling in your belly (abdomen). ??? No driving for 24 hours because of the medication (sedation) used during the test. ??? You may shower. ??? Do not sign any important legal documents or operate any machinery for 24 hours (because of the sedation used during the test). NUTRITION: ??? Drink plenty of fluids. ??? You may resume your normal diet or as instructed by your doctor ??? Begin with a light meal and progress to your normal diet. Heavy or fried foods are harder to digest and may make you feel sick to your stomach (nauseated). ??? Avoid alcoholic beverages for 24 hours or as instructed. MEDICATIONS: ??? You may resume your normal medications unless your doctor tells you otherwise. WHAT TO EXPECT TODAY: ??? Some feelings of bloating in the abdomen. ??? Excessive burping today and passage of more gas than usual. ??? A sore throat can be normal. Use throat lozenges or gargle with warm salt water and drink plenty of fluids. FINDING OUT THE RESULTS OF YOUR TEST: ??? Not all test results are available during your visit. If you had biopsies or other tests done during your procedure, you can make an appointment with your doctor to get the results. Sometimes you may be instructed to call the doctor???s office for your results. It is important for you to follow up on all of your test results. SEEK IMMEDIATE MEDICAL CARE IF: ??? You cannot eat or drink. ??? You have worsening throat or chest pain. ??? You have dizziness, lightheadedness, or you faint. ??? You have severe nausea or vomiting. ??? You have a fever greater than 101. ??? You have chills. ??? You have severe abdominal pain or discomfort that gets worse throughout the day. ??? You have black, tarry, or bloody stools. Emergency Awareness and Preventative Care STROKE is an EMERGENCY Every Minute Counts Act FAST and Check for these signs: FACE Does the face look uneven? ARM Does one arm drift down? SPEECH Does their speech sound strange? TIME Call at any sign of stroke Stroke Risk Factors Atrial Fibrillation (irregular heartbeat) Diabetes Family history of stroke Heart Disease Heavy alcohol use High Blood Pressure High Cholesterol Physical inactivity and obesity Smoking Cigarette Smoking The facts are clear, cigarette smoking will shorten your life. Smoking can cause many illnesses along the way. As a healthcare provider, we recommend that you stop smoking. Assistance with quitting is available by contacting 9-347-MTAR-NOW. This is a free resource providing counseling, support, and referral. Or you may contact your personal physician. National Suicide Prevention Lifeline: The National Suicide Prevention Lifeline is a national network of local crisis centers that provides free and confidential emotional support to people in suicidal crisis or emotional distress 24 hours a day, 7 days a week. Don't Wait! Stop a Heart Attack Before it Starts What is a heart attack? A heart attack is damage or to a part of the heart from severely decreased or lack of blood flow to the heart. Over time, arteries can become narrow from the buildup of fat and cholesterol, which is called plaque. The plaque can rupture causing a blood clot to form. When the blood clot forms, the artery can become severely narrowed or completely blocked, causing a heart attack. Heart attack is the leading cause of in the [place]. 85% of muscle damage occurs within the first 2 hours. Delay in the recognition of heart attack symptoms increases the chances of . Know the early symptoms of a heart attack: Nausea Feeling of fullness in chest Jaw Pain Pain that travels down one or both arms Fatigue/being tired Anxiety Back Pain Chest pressure, squeezing, or discomfort Shortness of breath Sweating, or a cold sweat Feeling of impending doom There are unusual signs of a heart attack, too! Women, the elderly, and diabetics may present with atypical symptoms: Fainting/dizziness Weakness Confusion Risk Factors for a Heart Attack Some heart disease risk factors, such as age and family history, cannot be changed. Others, like smoking and lack of exercise, can be changed. Smoking High Cholesterol High Blood Pressure Family History Obesity Age Gender (Males are at higher risk) Lack of Exercise Diabetes Diet Stress Excessive Alcohol Intake If you or someone you know is experiencing the signs and symptoms of a heart attack, DON???T DELAY. Call immediately and seek help. If someone collapses, perform CPR! Do not attempt to drive if you are having symptoms of heart attack. Hands-Only CPR Why Hands-Only CPR? Hands-Only CPR has been shown to be as effective as conventional CPR for cardiac arrests that occur outside of a hospital. Survival depends on immediately receiving CPR from someone nearby. How do you perform Hands-Only CPR? There are two easy steps: Call if you see a teen or adult collapse Push hard and fast in the center of the chest at a beat of 100 beats per minute. Save a life! 4 WAYS TO GET AHEAD OF SEPSIS SEPSIS is a MEDICAL EMERGENCY. Time matters! Infections put you and your family at risk for a life-threatening condition called sepsis. Sepsis is the body's extreme response to an infection. It is life-threatening, and without timely treatment, sepsis can rapidly lead to tissue damage, organ failure, and . Sepsis happens when an infection you already have-in your skin, lungs, urinary tract or somewhere else-triggers a chain reaction throughout your body. 1 PREVENT INFECTIONS Take good care of chronic conditions. Talk to your doctor about getting the recommended vaccines. 2 PRACTICE GOOD HYGIENE Wash your hands frequently. Keep cuts or open sores clean and covered until they are healed. 3 KNOW THE SYMPTOMS Confusion or disorientation Shortness of breath High heart rate Fever, shivering, or feeling very cold Extreme pain or discomfort Clammy or sweaty skin 4 ACT FAST Get medical care IMMEDIATELY if you suspect sepsis or if you have an infection that is not getting better or is getting worse. To learn more about sepsis and how to prevent infections, visit www.cdc.gov/sepsis. Test Results Laboratory or Other Results This Visit (last charted value for your 08/27/2020 visit) Microbiology 08/23/2020 11:00 AM SARS-CoV-2 (COVID19 PCR): Negative Patient Name:MONTY RANDHAWA I have received this information and was given the opportunity to ask questions. Patient/Party Host Name: Patient/Party Host Signature: Relationship to Patient: Clinician/Hospital Party Host Signature: Date: documented in this encounter Plan of Treatment Not on file documented as of this encounter Visit Diagnoses Not on filedocumented in this encounter
--- OUTSIDE RECORDS SUMMARY | 2024-11-03 08:00 | XMS_ITS | Referral Summary ---
Author Organization [employer] ([place], [place], [place], [place]) Address [address] [place] [address] Care Team Providers Care Beef Breaker Name Role Phone Unavailable Primary Care Provider Unavailabl e Social History Tobacco Use Types Packs/Day Years Used Date Smoking Tobacco: Never Assessed Comments Unknown Sex and Gender Information Value Date Recorded Sex Assigned at Not on file Legal Sex Female 7:17 PM CDT Gender Identity Not on file Sexual Orientation Not on file Plan of Treatment Not on file
--- OUTSIDE RECORDS SUMMARY | 2024-11-03 08:00 | XMS_ITS | Encounter Summary ---
Author Organization [facility] ([place], [place], [place], [place]) Address [address] [place] [address] Care Team Providers Care Rehabilitation Services Manager Name Role Phone Unavailable Primary Care Provider Unavailabl e Encounter Details Date Type Department Care Team (Late st Contact Info) Description 08/27/2020 Transcribed Document [facility] [place] Family Medicine [facility] [place] [address] ProviderJame MD [address] [place] [address] Social History Tobacco Use Types Packs/Day Years Used Date Smoking Tobacco: Never Assessed Comments Unknown Sex and Gender Information Value Date Recorded Sex Assigned at Not on file Legal Sex Female 7:17 PM CDT Gender Identity Not on file Sexual Orientation Not on file documented as of this encounter Miscellaneous Notes * Cerner Conversion Note - Jame ProviderMD - 08/27/2020 8:35 AM CDT Pre Procedure Adult Entered On: 08/27/2020 8:38 EDT Performed On: 08/27/2020 8:35 EDT by Olivia Damon RN Height and Weight, Clinical Dosing Height Source : Stated Height Entry Format : [place] Height, Feet : 5 ft(Converted to: 152 cm, 60 Inch) Height, Inches : 7 Inch(Converted to: 0 ft 7 Inch, 17.78 cm) Clinical Height : 170.18 cm Weight Source : Standing scale Weight Entry Format : [place] Clinical Dosing Weight : 101.36 kg Weight, Pounds : 223 lb Body Surface Area (BSA) : 2.12 m2 Body Mass Index : 35 kg/m2 (HI) [place] Body Weight : 61 kg Olivia Damon RN - 08/27/2020 8:35 EDT Health Histories Smoking Status : Never (less than 100 in lifetime; none in last 30 days) Smokeless Tobacco Status : Never Olivia Damon RN - 08/27/2020 8:35 EDT Social History (As Of: 08/27/2020 08:38:40 EDT) Infectious Disease History Has the patient ever been tested for COVID-19? : Yes, Patient stated results Negative Date of COVID-19 test known? : Yes Date of COVID-19 Test : 08/23/2020 EDT Does patient have symptoms of COVID-19? : No COVID19 Screening : No Experiencing Infectious Disease Symptoms : No symptoms Physical contact outside [place] in the last 30 days : No Infectious Disease History : None Tuberculosis Symptoms : None Olivia Damon RN - 08/27/2020 8:35 EDT COVID19 PreProcedure Screening Is this an Emergent or Add on Procedure? : No Date PreProcedure COVID-19 test known? : Yes Date of PreProcedure COVID-19 : 08/23/2020 EDT Has patient been isolated since the test : Yes Exposed to COVID19 symptoms since test? : No Olivia Damon RN - 08/27/2020 8:35 EDT Anesthesia/Transfusion History Family History of Anesthesia Reaction : No prior transfusion(s) Transfusion History : No prior anesthesia Family History of Anesthesia Reaction : None Olivia Damon RN - 08/27/2020 8:35 EDT Functional Assessment Living Situation : Home Current Home Treatments : None Olivia Damon RN - 08/27/2020 8:35 EDT [place] Suicide Severity Rating Scale (C-SSRS) CSSRS Past Month Wish to be : No CSSRS Past Month Suicidal Thoughts : No CSSRS Lifetime Suicide Behavior : No Suicide Severity Rating Score : 0 Suicide Severity Rating : No Additional Care Required at this time Olivia Damon RN - 08/27/2020 8:35 EDT Psychosocial History Currently in Unsafe Situation : No Olivia Damon RN - 08/27/2020 8:35 EDT Advance Directive Patient has Advance Directive *Q : No, patient refuses Advance Directive information Olivia Damon RN - 08/27/2020 8:35 EDT General Info Want Family/Rep/Phys Notified of Admit : No Emergency Contact #1 : Tiffany Leal Emergency Contact #1 Emergency Contact #1 Relationship : mother Emergency Contact #2 : Emergency Contact #2 Phone Number : Emergency Contact #2 Relationship : Primary Language : Romanian Communication Barrier : None Ocular Care Aide Needed : No Olivia Damon RN - 08/27/2020 8:35 EDT Sleep Apnea Risk Assmt Hx of Obstructive Sleep Apnea Diagnosis : No Snore Loudly : No Tired, Fatigued, or Sleepy During Day : No Observed Stopping Breathing During Sleep : No Have/Are Being Treated for Hypertension : No BMI Greater Than 35 kg/m2 : No Age over 50 Years Old : No Neck Circumference Greater Than 40 cm : No Gender Male : No STOP-BANG Sleep Apnea Risk Level Score : 0 Olivia Damon RN - 08/27/2020 8:35 EDT Piter Scale Piter Sensory Perception : No impairment Piter Moisture : Rarely moist Piter Activity : Walks frequently Pitre Mobility : No limitation Piter Nutrition : Excellent Piter Friction and Shear : No apparent problem Piter Score : 23 Olivia Damon RN - 08/27/2020 8:35 EDT Fall Risk Scales ABCs Fall Injury Risk Identification : None GALVAN Hx Falls Immediate/Within 3 Months : No [place] Secondary Diagnosis : No GALVAN Use of Ambulatory Aid : None GALVAN IV Therapy or IV Access : Yes [place] Gait/Transferring : Normal, bedrest, immobile [place] Mental Status : Oriented to own ability [place] Fall Risk Score : 20 GALVAN Fall Scale Risk Level : 0-24 Low Risk [place] Fall Interventions : Adequate lighting, Assistive devices within reach, Bed in low position, Room free of clutter/spills, Wheels locked, Wires/Cords secured Olivia Damon RN - 08/27/2020 8:35 EDT Valuables and Belongings Valuables and Belongings : Clothing Clothing : Common streetwear Clothing Disposition : With patient Olivia Damon RN - 08/27/2020 8:35 EDT documented in this encounter Plan of Treatment Not on file documented as of this encounter Visit Diagnoses Not on filedocumented in this encounter
--- OUTSIDE RECORDS SUMMARY | 2024-11-03 08:00 | XMS_ITS | Clinical Summary ---
Author Organization [employer] ([place], [place], [place], [place]) Address [address] [place] [address] Care Team Providers Care Textile Chemist Name Role Phone Unavailable Primary Care Provider [...]
--- OUTSIDE RECORDS SUMMARY | 2024-11-03 08:00 | XMS_ITS | Encounter Summary ---
Author Organization [employer] ([place], [place], [place], [place]) Address [address] [place] [address] Care Team Providers Care Timber Hewer Name Role Phone Unavailable Primary Care Provider Unavailabl e Encounter Details Date Type Department Care Team (Late st Contact Info) Description 08/27/2020 Transcribed Document [facility] [place] Family Medicine [facility] [place] [address] ProviderJame MD [address] [place], [place] [id number] Social History Tobacco Use Types Packs/Day Years Used Date Smoking Tobacco: Never Assessed Comments Unknown Sex and Gender Information Value Date Recorded Sex Assigned at Not on file Legal Sex Female 7:17 PM CDT Gender Identity Not on file Sexual Orientation Not on file documented as of this encounter Miscellaneous Notes * Cerner Conversion Note - Jame ProviderMD - 08/27/2020 9:50 AM CDT [facility] PACU Summary Primary Physician: NUBIA DACOSTA MD-GAE Finalized Date/Time: 08/27/20 10:31:53 Pt. Name: MONTY RANDHAWA/Sex: 2005 Female Med Rec #: [id number] Physician: NUBIA DACOSTA MD-GAE Financial #: [id number] Pt. Type: O Room/Bed: END/ Admit/Disch: 08/27/20 07:55:00 - Institution: [facility] PACU Case Times Entry 1 In PACU I 08/27/20 09:59:00 Ready for PACU 08/27/20 10:31:00 Discharge Discharge from PACU 08/27/20 10:31:00 I Last Modified By: Nereyda Power RN-PATIENT CARE BEDSIDE NON-EXEMPT 08/27/20 10:31:51 [facility] PACU Case Times Audit 08/27/20 10:31:51 Refrigeration Repair Supervisor: TIM Modifier: TIM <+> 1 Ready for PACU Discharge <+> 1 Discharge from PACU I Finalized By: Nereyda Power RN-PATIENT CARE BEDSIDE NON-EXEMPT Document Signatures Signed By: Nereyda Power RN-PATIENT CARE BEDSIDE NON-EXEMPT 08/27/20 10:31 documented in this encounter Plan of Treatment Not on file documented as of this encounter Visit Diagnoses Not on filedocumented in this encounter
--- NOTE | 2024-11-03 08:16 | US_ITS ---
FINAL REPORT CLINICAL HISTORY: LOWER LEG EDEMA FINDINGS: ULTRASOUND ABDOMEN There is fatty infiltration of the liver. No focal hepatic lesion identified. Spleen has a normal sonographic appearance. No abnormality of the gallbladder is seen. No biliary ductal dilatation is identified. Kidneys show no evidence of mass or obstruction. Pancreas is not well visualized. IVC and aorta are grossly unremarkable. There is no obvious fluid collection. IMPRESSION: Fatty liver. Reviewed, Interpreted and Dictated by Sunshine Lowe MD Transcribed by [employer] Authenticated and [facility]
--- NOTE | 2024-11-03 08:35 | CA_ITS ---
FINAL REPORT TECHNIQUE: Color and spectral Doppler analysis CLINICAL HISTORY: LE EDEMA,LE PAIN FINDINGS: Right lower extremity, flow velocities (cm per second): Common femoral artery: 153 Profunda: 67 Proximal SFA: 91 Mid SFA: 99 Distal SFA: 90 Popliteal: 64 Proximal METER MECHANIC: 96 Mid METER MECHANIC: 88 Distal METER MECHANIC: 81 Distal KRYSTYNA: 69 Proximal peroneal: 68 Left lower extremity, flow velocities (cm per second): Common femoral artery: 114 Profunda: 88 Proximal SFA: 124 Mid SFA 108 Distal SFA: 106 Popliteal: 64 Proximal METER MECHANIC: 79 Mid METER MECHANIC: 99 Distal METER MECHANIC: 100 Distal KRYSTYNA: 100 Proximal peroneal: 50 Waveforms are noted to be biphasic and triphasic. No levels of stenosis or occlusion are identified. IMPRESSION: No evidence of significant peripheral vascular disease in the lower extremities. Reviewed, Interpreted and Dictated by Sunshine Lowe MD Transcribed by Oanh Edge Authenticated and [facility]
--- NOTE | 2024-11-03 08:35 | CA_ITS ---
FINAL REPORT CLINICAL HISTORY: LE EDEMA FINDINGS: Multiple transverse and longitudinal scans were performed of the femoral popliteal deep venous system, with augmentation and compression maneuvers. Normal phasic flow was noted in the visualized deep venous system. No intraluminal increased echogenicity is noted to suggest thrombus. There is normal compression and augmentation of the venous structures. No abnormal venous collaterals are seen. IMPRESSION: No evidence of deep venous thrombosis of the bilateral lower extremities. Reviewed, Interpreted and Dictated by Sunshine Lowe MD Transcribed by Oanh Edge Authenticated and . [facility]
== END 2024-11-03 23:59 | disposition home or self-care (01) ==
LOC: RAD 07:58
PROVIDERS: PCP Nurse Practitioner Family; Visit Provider Physician Assistant
DX: K76.0 Fatty (change of) liver, not elsewhere classified (principal); R60.0 Localized edema
CPT/HCPCS: 76700; 93925; 93970

== ENCOUNTER 2025-02-01 10:11 | Outpatient (CLI) | payer BC, SELFPAY ==
--- NOTE | 2025-02-01 10:20 | XR_ITS ---
FINAL REPORT CLINICAL HISTORY: PAIN - NECK PAIN, MID BACK PAIN, AND LOW BACK PAIN. PAIN HAS BEEN ON GOING FOR 2 YEARS FROM NECK TO LOWER BACK. NO KNOWN INJURY OR SURGERY ON NECK OR BACK. FINDINGS: CERVICAL SPINE Three views were obtained. There is no acute fracture. There is straightening of the cervical lordosis. The disc spaces are well-preserved. There is no malalignment. IMPRESSION: Straightening of the cervical lordosis, may be due to spasm or strain. THORACIC SPINE Three views were obtained. There is no acute fracture. There is mild multilevel degenerative disc disease. There is no malalignment. IMPRESSION: Degenerative disc disease. LUMBAR SPINE Three views were obtained. There is no acute fracture. The disc spaces are well-preserved. There is an IUD in the pelvis. There is no malalignment. IMPRESSION: No acute process. IMPRESSION: No acute process. Reviewed, Interpreted and Dictated by Swathi Mandel MD Transcribed by Oanh Edge Authenticated and [facility]
== END 2025-02-01 23:59 | disposition home or self-care (01) ==
LOC: RAD 10:13
PROVIDERS: PCP Nurse Practitioner Family
DX: M53.82 Other specified dorsopathies, cervical region (principal); M51.34 Other intervertebral disc degeneration, thoracic region; Z97.5 Presence of (intrauterine) contraceptive device
CPT/HCPCS: 72084

== ENCOUNTER 2025-02-08 13:54 | Outpatient (RCR) | payer BC, SELFPAY | END 2025-02-08 23:59 | disposition home or self-care (01) | LOC: PT 13:54 | DX: M54.2 Cervicalgia (principal); M54.50 Low back pain, unspecified | CPT/HCPCS: 97161 ==

== ENCOUNTER 2025-03-20 15:00 | Outpatient (RCR) | payer BC, SELFPAY | END 2025-03-20 23:59 | disposition home or self-care (01) | LOC: PT 15:00 | DX: M54.50 Low back pain, unspecified (principal); M54.2 Cervicalgia | CPT/HCPCS: 97014; 97110; 97140; G0283 ==

== ENCOUNTER 2025-04-16 09:16 | Outpatient (CLI) | payer BC, SELFPAY ==
[2025-04-16 15:40] LABS: Coronavirus 19, PCR Not Detected (NotDetected); Influenza A, PCR Not Detected (NotDetected); Influenza B, PCR Not Detected (NotDetected)
--- OUTSIDE RECORDS SUMMARY | 2025-04-17 13:24 | XMS_ITS | Encounter Summary ---
Author Organization [employer] ([place], [place], [place], [place], [place]) Address [address] [place] [address] Care Team Providers Care Circular Gang Saw Operator Name Role Phone Unavailable Primary Care Provider Unavailabl e Encounter Details Date Type Department Care Team (Late st Contact Info) Description 08/27/2020 Transcribed Document [facility] [place] Family Medicine [address] [place] [address] ProviderJame MD [address] [place] [address] Social History Tobacco Use Types [...] Jame ProviderMD - 08/27/2020 10:09 AM CDT [facility] [address] [place], [place] [id number] MONTY RANDHAWA :2005 Visit Time:08/27/2020 What to [...] with NUBIA DACOSTA MD-GAE When Where: [address] [place] [address]- Medications What How Much When Instructions Next [...] activities are safe for you. ??? Take ashv-xcw-qdakyjl and prescription medicines only as told by [...] Reviewed: 11/26/2017 Kayleen Patient Education ?? 2020 [employer]. ESOPHAGOGASTRODUODENOSCOPY Care After Read the instructions outlined [...] Assistance with quitting is available by contacting 4-524-HNLR-NOW. This is a free resource providing counseling, [...] was given the opportunity to ask questions. Patient/Credit Operations Specialist Name: Patient/Credit Operations Specialist Signature: Relationship to Patient: Clinician/Hospital Credit Operations Specialist Signature: Date: documented in this encounter Plan of Treatment Not on file documented as of this encounter Visit Diagnoses Not on filedocumented in this encounter
--- OUTSIDE RECORDS SUMMARY | 2025-04-17 13:24 | XMS_ITS | Encounter Summary ---
Author Organization [employer] ([place], [place], [place], [place], [place]) Address [address] [place] [address] Care Team Providers Care Concrete Paving Supervisor Name Role Phone Unavailable Primary Care Provider Unavailabl e Encounter Details Date Type Department Care Team (Late st Contact Info) Description 08/27/2020 Transcribed Document [facility] [place] Family Medicine [facility] [place] [address] ProviderJame MD [address] [place] [address] Social History Tobacco Use Types Packs/Day Years Used Date Smoking Tobacco: Never Assessed Comments Unknown Sex and Gender Information Value Date Recorded Sex Assigned at Not on file Legal Sex Female 7:17 PM CDT Gender Identity Not on file Sexual Orientation Not on file documented as of this encounter Miscellaneous Notes * Cerner Conversion Note - Jame Simon MD - 08/27/2020 10:08 AM CDT Patient Education [...] activities are safe for you. ??? Take gtdf-out-mbiwfyb and prescription medicines only as told by [...] provider. Document Revised: 04/15/2018 Document Reviewed: 11/26/2017 [employer] Patient Education ? 2020 [employer]. ESOPHAGOGASTRODUODENOSCOPY Care After Read the instructions outlined [...]
--- OUTSIDE RECORDS SUMMARY | 2025-04-17 13:24 | XMS_ITS | Referral Summary ---
Author Organization [employer] ([place], [place], [place], [place], [place]) Address [address] [place] [address] Care Team Providers Care Carpet Winder Name Role Phone Unavailable Primary Care Provider [...]
--- OUTSIDE RECORDS SUMMARY | 2025-04-17 13:24 | XMS_ITS | Encounter Summary ---
Author Organization [employer] ([place], [place], [place], [place], [place]) Address [address] [place] [address] Care Team Providers Care English As A Second Language Instructor Name Role Phone Unavailable Primary Care Provider Unavailabl e Encounter Details Date Type Department Care Team (Late st Contact Info) Description 08/27/2020 Transcribed Document [facility] [place] Family Medicine [facility] [place] [address] ProviderJame MD [facility] [place] [address] Social History Tobacco Use Types [...] Jame ProviderMD - 08/27/2020 9:50 AM CDT [facility] PACU Summary Primary Physician: NUBIA DACOSTA MD-GAE Finalized Date/Time: 08/27/20 10:31:53 Pt. Name: MONTY RANDHAWA/Sex: 2005 Female Med Rec #: [id number] Physician: NUBIA DACOSTA MD-GAE Financial #: [id number] Pt. Type: O Room/Bed: END/ Admit/Disch: 08/27/20 07:55:00 - Institution: [facility] PACU Case Times Entry 1 In PACU I 08/27/20 09:59:00 Ready for PACU 08/27/20 10:31:00 Discharge Discharge from PACU 08/27/20 10:31:00 I Last Modified By: Nereyda Power RN-PATIENT CARE BEDSIDE NON-EXEMPT 08/27/20 10:31:51 [facility] Endo PACU Case Times Audit 08/27/20 10:31:51 Satellite Project Site Monitor: TIM Modifier: TRENTLILIBETHTHEO <+> 1 Ready for PACU Discharge <+> 1 Discharge from PACU I Finalized By: Nereyda Power RN-PATIENT CARE BEDSIDE NON-EXEMPT Document Signatures Signed By: Nereyda Power RN-PATIENT CARE BEDSIDE NON-EXEMPT 08/27/20 10:31 Electronically signed by Nikki Meyer Conversion Composition Weatherboard Installer Cerner at 08/12/2022 8:24 AM CDT documented in this encounter Plan of Treatment Not on file documented as of this encounter Visit Diagnoses Not on filedocumented in this encounter
--- OUTSIDE RECORDS SUMMARY | 2025-04-17 13:24 | XMS_ITS | Clinical Summary ---
Author Organization [employer] ([place], [place], [place], [place], [place]) Address [address] [place] [address] Care Team Providers Care Sole Ruffer Name Role Phone Unavailable Primary Care Provider [...]
--- OUTSIDE RECORDS SUMMARY | 2025-04-17 13:24 | XMS_ITS | Data Portability ---
Author Organization [facility] FIORELLA [place] Address [address] [place] [address] Assessment No assessment recorded. Plan of Treatment [...] contr ast No observ ation record ed. [address], [place], [address], 01/25/2023 07:26:32 01/22/20 23 12/27/2022 MRI, knee, w/o contr ast No observ ation record ed. [address], [place], [address], 01/25/2023 07:26:46 Result Notes None recorded. Medical Equipment None Reported. Allergies Allergen ID Allergen Name Allergen Category Reaction Reaction Severity Criticality Documentation Date Start Date Code Code System Note Provider Name and Address Organization Details Recorded Time [id number] amoxicill in medicatio n Not available Not available Not available 01/26/2023 723 RxNorm Joann bhatti [facility] 15:11:34 Medications Name Sig Start Date Stop [...] sex Body mass index (BMI) Body weight Pain severity - 0-10 verbal numeric rating [Score] - Reported Provider Name and Address Organization Details Last Updated DateTime 01/26/2023 170.18 cm 99 % 38.4 kg/m2 097438. 13 g 8 Joann Xiong [facility] 15:13:35 Social History None recorded. Functional Status None recorded. Mental Status None recorded. Family History Nothing Reported. Medical History No medical history recorded. Gynecological HistoryNo gynecological history recorded. Obstetrics History GPAL:G 0 P 0 0 0 0 Past Encounters Encounter ID Performer Location Encounter Start Date Encounter Closed Date Diagnosis/Indication Diagnosis SNOMED-CT Code Diagnosis ICD10 Code Diagnosis IMO Codes Diagnosis Note [id number] [facility] [address] 07/27/2016 20:23:45 07/27/2016 20:23:45 [id number] VALENCIA PAINTER MD [facility] [address] [place] [address] 01/26/2023 14:53:12 01/26/2023 16:05:27 Contusion of right knee [id number] S80.01XA Assessment : Contusion of lateral compartmen [...] ID Guarantor Name 01/26/2023 1 [place] [id number] Tiffany Ramos Leal [id number] Monty Ramírez Mel Notes Date Note Type Note Provider Name [...] for about 2.5 weeks. VALENCIA PAINTER MD [facility] [place], [address], [facility] 01/26/2023 16:17:48 OBGyn Episode No OBEpisode recorded.
--- OUTSIDE RECORDS SUMMARY | 2025-04-17 13:24 | XMS_ITS | Clinical Summary ---
Author Organization [facility] Address [address] [place] [address] Care Team Providers Care Covered Buckle Assembler Name Role Phone Nina Melara WILBUR Primary Care Provid er Allergies Active Allergy Reactions Criticality Noted Date Comments Penicillins 02/03/2022 Medications omeprazole (PRILOSEC) 20 MG capsule Take 20 mg by mouth daily. Active ARIPiprazole (ABILIFY) 5 MG tablet Take 5 mg by mouth daily. Active Active Problems Problem Noted Date Diagnosed Date Tachycardia 05/04/2022 Anxiety and depression 10/20/2021 GERD (gastroesophageal reflux disease) 2 Immunizations Immunization Administration Dates Next Due COVID-19 Pfizer PURPLE Ages 12 and Older 10/11/2020,09/20/2020 DTaP, Unspecified 01/18/2009, 6,05/15/2005,03/13,01/13/2005 HPV Quadrivalent 01/15/2016,11/12/2015 HPV, Unspecified 07/21/2016 Hep A, Unspecified 02/17/2018,08/20/2017 Hep B, Unspecified 02/16/2006,01/13/2005, 005 Hib, Unspecified 02/16/2006, 6,03/13/2005,01/13 IPV 01/18/2009 Influenza Vaccine Quadrivalent Pf 01/15/2016 Influenza Vaccine Tri (IM) 01/18/2009 Influenza, Injectable, MDCK, Preservative Free, Quadrivalent 02/09/2022 Influenza, Unspecified 01/18/2017 MMR 01/18/2009,11/11/2005 Meningococcal ACWY, Unspecified 11/12/2015 Pneumococcal, Unspecified 02/16/2006,,03/13/2005,01/13 Polio, Unspecified 02/16/2006, 6,03/13/2005,01/13 Tdap 11/12/2015 Varicella 04/12/2017,11/11/2005 Family History Medical History Relation Comments Hyperlipidemia Father Heart disease Maternal Grandmother Thyroid disease Maternal Grandmother Hyperlipidemia Mother Hypertension Neg Hx Relation Status Comments Father Maternal Grandmother Mother Social History Tobacco Use Types Packs/Day Years Used Date Smoking Tobacco: Never Smokeless Tobacco: Never Alcohol Use Standard Drinks/Week Comments Never 0 (1 standard drink = 0.6 oz pur e alcohol) Comments Unknown Sex and Gender Information Value Date Recorded Sex Assigned at Not on file Legal Sex Female 10:11 AM EDT Gender Identity Not on file Sexual Orientation Not on file Last Filed Vital Signs Vital Sign Reading Time Taken Comments Blood Pressure 121/71 05/04/2022 1:55 PM EST Pulse 85 05/04/2022 1:55 PM EST Temperature 36.7 C (98.1 F) 05/04/2022 1:55 PM EST Respiratory Rate 22 05/04/2022 1:55 PM EST Oxygen Saturation 98% 05/04/2022 1:55 PM EST Inhaled Oxygen Concentration - - Weight 113.6 kg (250 lb 7.1 oz) 05/04/2022 1:55 PM EST Height 170.8 cm (5' 7.24 ) 05/04/2022 1:55 PM ES T Body Mass Index 38.94 05/04/2022 1:55 PM EST Plan of Treatment Health Maintenance Due Date Last Done Comments Annual SDOH Screening 04/26/2024 Depression Screening 04/26/2024 Influenza Vaccine (#1) 2024 2, 01/18/2017, 01/15/2016, Additional history exists Tdap/Td Vaccine >11 yo (7 - Td or Tdap) 11/11/2025 11/12/2015, 01/18/2009, 02/16/2006, Additional history exists Haemophilus Influenzae Type B (Hib) Vaccine Completed 02/16/2006, 05/15/2005, 03/13/2005, Additional history exists Hepatitis B (HepB) Vaccine Completed 02/16, 01/13/2005, 2004 Polio (IPV) Completed 01/18/2009, 01/25, 05/15/2005, Additional history exists Meningococcal ACWY Aged Out 11/12/2015 No longer eligible based on patient's age to complete this topic HPV Vaccine Completed 07/21/2016, 12/26, 11/12/2015 Hepatitis A (HepA) Vaccine Completed 02/17/2018, Pneumococcal Vaccines 6-49 yo Risk Aged Out No longer eligible based on patient's age to complete this topic Rotavirus (RV) Vaccine Aged Out No lo nger eligible based on patient's age to complete this topic Insurance [place] [phone] ANTH Care Teams Covered Buckle Assembler Relationship Specialty Start Date End Date Nina Melara APRN [address] [facility] [address] [facility] [place] [address] PCP - General Nurse Practitioner Family 12/18/21
--- OUTSIDE RECORDS SUMMARY | 2025-04-17 13:24 | XMS_ITS | Clinical Summary ---
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 Not on file Not on file Not on file Last Filed Vital Signs Vital Sign Reading Time Taken Comments Blood Pressure 123/79 10/20/2021 12:09 PM EDT Pulse 69 10/20/2021 12:06 PM EDT Temperature - - Respiratory Rate 18 10/20/2021 12:06 PM EDT Oxygen Saturation - - Inhaled Oxygen Concentration - - Weight 106 kg (232 lb 12.9 oz) 10/20/2021 12:06 PM EDT Height 172 cm (5' 7.72 ) 10/20/2021 12:06 PM EDT Body Mass Index 35.69 10/20/2021 12:06 PM EDT Plan of Treatment Health Maintenance Due Date Last Done Comments [facility]-Depression Screening 2004 [facility]-/Child/Adol SDOH Screenings 2004 [facility]-IPV Vaccines (2 of 3 - 4-dose series) 02/15/2009 01/18/2009 HPV Vaccines (3 - 2-dose series) 05/14/2016 01/15/2016, 11/12/2015 [facility]- SDOH Screenings 2022 [facility]-Adult SDOH Screenings 2022 [facility]-Hepatitis B Vaccines (1 of 3 - 19+ 3-dose series) 11/10/2023 [id number] Vaccine (3 - 2024- season) 2024 10/11/2020, 09/20/2020 [facility]-Influenza Vaccine (#1) 12/25/202401/18, 01/15/2016, [...] patient's age to complete this topic Insurance [employer] Care Teams Talent Acquisition Manager Relationship Specialty Start Date End Date Nina Melara APRN [address] [facility] [address] [facility] [address] [place] [phone] PCP - General 06/30/21 Maura Jones DO [facility] [phone] 06/30/21
--- OUTSIDE RECORDS SUMMARY | 2025-04-17 13:24 | XMS_ITS | Encounter Summary ---
Author Organization [employer] ([place], [place], [place], [place], [place]) Address [address] [place] [address] Care Team Providers Care Centrifugal Machine Tender Name Role Phone Unavailable Primary Care Provider Unavailabl e Encounter Details Date Type Department Care Team (Late st Contact Info) Description 08/27/2020 Transcribed Document [facility] [place] Family Medicine [facility] [place] [address] ProviderJame MD [address] [place] [address] Social History Tobacco Use Types Packs/Day Years Used Date Smoking Tobacco: Never Assessed Comments Unknown Sex and Gender Information Value Date Recorded Sex Assigned at Not on file Legal Sex Female 7:17 PM CDT Gender Identity Not on file Sexual Orientation Not on file documented as of this encounter Miscellaneous Notes * Cerner Conversion Note - Historical ProviderMD - 08/27/2020 8:35 AM CDT Pre Procedure Adult Entered On: 08/27/2020 8:38 EDT Performed On: 08/27/2020 8:35 EDT by Olivia Damon RN Height and Weight, Clinical Dosing Height Source : Stated Height Entry Format : [place] Height, Feet : 5 ft(Converted to: 152 cm, 60 Inch) Height, Inches : 7 Inch(Converted to: 0 ft 7 Inch, 17.78 cm) Clinical Height : 170.18 cm Weight Source : Standing scale Weight Entry Format : [place] Clinical Dosing Weight : 101.36 kg Weight, Pounds : 223 lb Body Surface Area (BSA) : 2.12 m2 Body Mass Index : 35 kg/m2 (HI) [place] Body Weight : 61 kg Olivia Damon [...] Olivia Damon RN - 08/27/2020 8:35 EDT [place] Suicide Severity Rating Scale (C-SSRS) CSSRS Past [...] Contact #2 Relationship : Primary Language : Nigerien Communication Barrier : None Multimedia Services Coordinator Needed : No Olivia Damon RN - [...] Rarely moist Piter Activity : Walks frequently Piter Mobility : No limitation Piter Nutrition : [...] Scale Risk Level : 0-24 Low Risk [place] Fall Interventions : Adequate lighting, Assistive devices within reach, Bed in low position, Room free of clutter/spills, Wheels locked, Wires/Cords secured Olivia Damon RN - 08/27/2020 8:35 EDT Valuables and Belongings Valuables and Belongings : Clothing Clothing : Common streetwear Clothing Disposition : With patient Olivia Damon RN - 08/27/2020 8:35 EDT Electronically signed by Nikki Meyer Conversion Horizontal Boring Mill Operator Cerner at 08/12/2022 8:24 AM CDT documented in this encounter Plan of Treatment Not on file documented as of this encounter Visit Diagnoses Not on filedocumented in this encounter
--- OUTSIDE RECORDS SUMMARY | 2025-04-17 13:24 | XMS_ITS | Encounter Summary ---
Author Organization [employer] ([place], [place], [place], [place], [place]) Address [address] [place] [address] Care Team Providers Care Signal Wirer Name Role Phone Unavailable Primary Care Provider Unavailabl e Encounter Details Date Type Department Care Team (Late st Contact Info) Description 08/27/2020 Transcribed Document [facility] [place] [facility] [place] [address] ProviderJame MD [address] [place] [address] Social History Tobacco Use Types Packs/Day Years Used Date Smoking Tobacco: Never Assessed Comments Unknown Sex and Gender Information Value Date Recorded Sex Assigned at Not on file Legal Sex Female 7:17 PM CDT Gender Identity Not on file Sexual Orientation Not on file documented as of this encounter Miscellaneous Notes * Cerner Conversion Note - Jame ProviderMD - 08/27/2020 9:00 AM CDT [facility] Melissa PreOp Summary Primary Physician: NUBIA DACOSTA MD-GAE Finalized Date/Time: 08/27/20 08:42:49 Pt. Name: MONTY RANDHAWA/Sex: 2005 Female Med Rec #: [id number] Physician: NUBIA DACOSTA MD-GAE Financial #: [id number] Pt. Type: O Room/Bed: END/ Admit/Disch: 08/27/20 07:55:00 - Institution: [facility] Melissa PreOp Case Times Entry 1 In Preop 08/27/20 08:30:00 Ready for Holding n/a Room Patient Ready for 08/27/20 08:42:00 Surgery Patient Out of Preop 08/27/20 08:42:00 Patient Out of n/a Holding Room Last Modified By: Olivia Damon RN 08/27/20 08:42:47 Finalized By: Olivia Damon RN Document Signatures Signed By: Olivia Damon RN 08/27/20 08:42 Electronically signed by Betsy [facility] Conversion Business Systems Analyst Cerner at 08/12/2022 8:08 AM CDT documented in this encounter Plan of Treatment Not on file documented as of this encounter Visit Diagnoses Not on filedocumented in this encounter
--- OUTSIDE RECORDS SUMMARY | 2025-04-17 13:24 | XMS_ITS | Encounter Summary ---
Author Organization [employer] ([place], [place], [place], [place], [place]) Address [address] [place] [address] Care Team Providers Care Coat Repair Inspector Name Role Phone Unavailable Primary Care Provider Unavailabl e Encounter Details Date Type Department Care Team (Late st Contact Info) Description 08/27/2020 Transcribed Document [facility] [place] [facility] [place] [address] ProviderJame MD [facility] [place] [address] Social History Tobacco Use Types [...] Jame ProviderMD - 08/27/2020 9:50 AM CDT [facility] Endo IntraOp Summary Primary Physician: NUBIA DACOSTA MD-GAE Finalized Date/Time: 08/27/20 09:56:41 Pt. Name: MONTY RANDHAWA/Sex: 2005 Female Med Rec #: [id number] Physician: NUBIA DACOSTA MD-GAE Financial #: [id number] Pt. Type: O Room/Bed: END/ Admit/Disch: 08/27/20 07:55:00 - Institution: [facility] Endo - Case Attendance Entry 1 Entry 2 Entry 3 Case Attendee NUBIA DACOSTA MD-GAE CORNEA, MD ARSLAN-CATARINA WANG BODY AND FRAME TECHNICIAN Role Performed Surgeon/Proceduralist, Anesthesiologist of BODY AND FRAME TECHNICIAN/Nurse Pharmacy Technician Per Diem First Record Time In 08/27/20 09:50:00 08/27/20 09:30:00 08/27/20 09:30:00 Time Out 08/27/20 09:59:00 08/27/20 09:59:00 08/27/20 09:59:00 Procedure Esophagogastroduodenosco Esophagogastroduodenosco Esophagogastroduodenosco py, Esophageal Biopsy, py, Esophageal Biopsy, py, Esophageal Biopsy, Duodenal Biopsy, Duodenal Biopsy, Duodenal Biopsy, Gastric Biopsy Gastric Biopsy Gastric Biopsy Other Attendee Superficial Wound Closed By: Last Modified By: Angelina Apple RN Springate, Samantha, RN Springate, Samantha, RN 08/27/20 09:56:20 08/27/20 09:56:20 08/27/20 09:56:20 Entry 4 Entry 5 Case Attendee Angelina Apple, LILLY MOLINA Role Performed Auto Body Straightener, First Scrub, First Time In 08/27/20 09:30:00 08/27/20 09:30:00 Time Out 08/27/20 09:59:00 08/27/20 09:59:00 Procedure Esophagogastroduodenosco Esophagogastroduodenosco py, Esophageal Biopsy, py, Esophageal Biopsy, Duodenal Biopsy, Duodenal Biopsy, Gastric Biopsy Gastric Biopsy Other Attendee Superficial Wound Closed By: Last Modified By: Angelina Apple RN Springate, Samantha, RN 08/27/20 09:56:20 08/27/20 09:56:20 [facility] Endo - Case Attendance Audit 08/27/20 09:56:20 Property Utilization Officer: [id number] Modifier: [id number] 1 <+> Time Out 1 <*> Procedure [...] Biopsy, Duodenal Biopsy, Gastric Biopsy 08/27/20 09:54:03 Property Utilization Officer: [id number] Modifier: [id number] 1 <*> Procedure Esophagogastroduodenoscopy 2 <*> Procedure Esophagogastroduodenoscopy 3 <*> Procedure Esophagogastroduodenoscopy 4 <*> Procedure Esophagogastroduodenoscopy 5 <*> Procedure Esophagogastroduodenoscopy 08/27/20 09:50:22 Property Utilization Officer: [id number] Modifier: [id number] 1 <*> Time In 08/27/20 09:30:00 1 <*> Procedure Esophagogastroduodenoscopy 08/27/20 09:36:40 Property Utilization Officer: [id number] Modifier: [id number] 1 <*> Procedure Esophagogastroduodenoscopy 2 <+> Time In 2 <*> Procedure Esophagogastroduodenoscopy 3 <+> Time In 3 <*> Procedure Esophagogastroduodenoscopy 4 <+> Time In 4 <*> Procedure Esophagogastroduodenoscopy 5 <+> Time In 5 <*> Procedure Esophagogastroduodenoscopy 08/27/20 09:33:16 Property Utilization Officer: [id number] Modifier: [id number] 1 <+> Time In 1 <*> Procedure Esophagogastroduodenoscopy <+> 2 Case Attendee <+> 2 Role Performed <+> 2 Procedure <+> 3 Case Attendee <+> 3 Role Performed <+> 3 Procedure <+> 4 Case Attendee <+> 4 Role Performed <+> 4 Procedure <+> 5 Case Attendee <+> 5 Role Performed <+> 5 Procedure [facility] Endo - Case times Entry 1 Patient In Room Time 08/27/20 09:30:00 Out Room Time 08/27/20 09:59:00 Anesthesia Start Time 08/27/20 09:30:00 Stop Time 08/27/20 09:59:00 Surgery / Procedure Times Start Time 08/27/20 09:50:00 Stop Time 08/27/20 09:56:00 Last Modified By: Angelina Apple RN 08/27/20 09:56:19 [facility] Endo - Case times Audit 08/27/20 09:56:19 Property Utilization Officer: [id number] Modifier: [id number] <+> 1 Out Room Time <+> 1 Stop Time <+> 1 Stop Time 08/27/20 09:51:07 Property Utilization Officer: [id number] Modifier: [id number] <+> 1 Start Time [facility] Endo - Cultures and Spec Summary Entry 1 Cultrures and Specimens Specimen Ordered: Yes Test(s) Routine/Path-Lab Requested/Final Disposition Last Modified By: Angelina Apple RN 08/27/20 09:54:10 [facility] Endo - Delays Entry 1 Delay Reason Other Duration 0 Minute(s) Last Modified By: Angelina Apple RN 08/27/20 09:35:16 [facility] Endo - Departure from OR Entry 1 Integumentary Assessment Integumentary WDL Assessment WDL Transfer/Handoff Transfer to PACU Phase I Post-op Transport Stretcher/Gurney Via Patient Transport Angelina Apple, Accompanied by RN, CATARINA CALVILLO CRNA Last Modified By: Angelina Apple RN 08/27/20 09:35:20 [facility] Endo - Endoscopy Details Entry 1 Abdomen Procedure Soft, Non-Tender Assessment Procedure Abdomen 08/27/20 09:30:00 Assessment D/T Radio Frequency Ablation Abdominal Pressure Last Modified By: Angelina Apple RN 08/27/20 09:35:34 [facility] Endo - Fire Risk Assessment Entry 1 [...] Modified By: Angelina Apple RN 08/27/20 09:35:41 [facility] Endo - General Case Welding Machine Operator/Tender 1 Case Information OR Endo 03 [facility] Case Level 1 Room Verified Yes Wound Class II - Clean-Contaminated Specialty Gastroenterology Anesthesia Type MAC ASA Class 2 Diagnosis Preop Diagnosis Abdominal pain, GERD Postop Same As Preop No Postop Diagnosis Normal Last Modified By: Angelina Apple RN 08/27/20 09:56:29 [facility] Endo - General Case Data Audit 08/27/20 09:56:29 Property Utilization Officer: [id number] Modifier: [id number] <+> 1 Postop Same As Preop <+> 1 Postop Diagnosis [facility] Endo - Intraoperative Assessment Entry 1 Valid History / Yes Physical in Chart Preoperative Yes Checklist Reviewed/Evaluated Patient is Latex No Sensitive Level of WDL Consciousness (WDL = Alert, Oriented to Person, Place, and Time) Last Modified By: Angelina Apple RN 08/27/20 09:36:09 [facility] Endo - Intraoperative Equipment Entry 1 Equipment Intraop Monitoring Electrocardiogram Three lead placement (ECG) Electrode Placement Blood Pressure Arm, left upper Location Pulse Oximeter Hand, right Probe Site Antiembolic Devices Scopes Flexible Endoscopes Gastroscope Used Scope Serial B Number/Identificatio n Number Photo/Video Documentation Photo Yes Video No Last Modified By: Angelina Apple RN 08/27/20 09:36:19 [facility] Endo - Patient Positioning Entry 1 Procedure [...] Modified By: Angelina Apple RN 08/27/20 09:54:04 [facility] Endo - Patient Positioning Audit 08/27/20 09:54:04 Property Utilization Officer: [id number] Modifier: [id number] 1 <*> Procedure Esophagogastroduodenoscopy [facility] Endo - Sign In Entry 1 Patient, Site, Yes Procedure Identified Surgical Consent Yes Confirmed Surgical Site N/A Marked by person performing procedure Airway Hypothermia Risk No Warming Measures No Taken Last Modified By: Angelina Apple RN 08/27/20 09:36:38 [facility] Endo - Sign Out Entry 1 RN [...] Modified By: Angelina Apple RN 08/27/20 09:56:38 [facility] Endo - Surgical Procedures Entry 1 Entry 2 Entry 3 Procedure Esophagogastroduodenosco Esophageal Biopsy Duodenal Biopsy py Modifiers Additional proximal and distal Procedure Description Primary Procedure Yes No No Primary Surgeon NUBIA DACOSTA MD-GAE MARTIN, KATHLEEN, MD-GAE MARTIN, KATHLEEN, MD-GAE Start 08/27/20 09:50:00 08/27/20 09:50:00 08/27/20 09:50:00 Stop 08/27/20 09:56:00 08/27/20 09:56:00 08/27/20 09:56:00 Physician States Cecum Reached Anesthesia Type MAC MAC [facility] [place] Specialty Gastroenterology Gastroenterology Gastroenterology Wound Class II - Clean-Contaminated II - Clean-Contaminated II - Clean-Contaminated Last Modified By: Angelina Apple, Angelina Ocampo RN Springate, Samantha, RN 08/27/20 09:56:30 08/27/20 09:56:30 08/27/20 09:56:30 Entry 4 Procedure Gastric Biopsy Modifiers Additional Procedure Description Primary Procedure No Primary Surgeon NUBIA DACOSTA MD-GAE Start 08/27/20 09:50:00 Stop 08/27/20 09:56:00 Physician States Cecum Reached Anesthesia Type [facility] Specialty Gastroenterology Wound Class II - Clean-Contaminated Last Modified By: Angelina Apple RN 08/27/20 09:56:30 [facility] Endo - Surgical Procedures Audit 08/27/20 09:56:30 Property Utilization Officer: [id number] Modifier: [id number] <+> 1 Stop <+> 2 Stop <+> 3 Stop <+> 4 Stop 08/27/20 09:53:57 Property Utilization Officer: [id number] Modifier: [id number] <+> 1 Start <+> 2 Procedure <+> [...] Class <+> 4 Anesthesia Type 08/27/20 09:36:52 Property Utilization Officer: [id number] Modifier: [id number] 1 <*> Procedure Esophagogastroduodenoscopy 1 <+> Specialty [facility] Endo - Time Out Entry 1 Procedure [...] Modified By: Angelina Apple RN 08/27/20 09:54:04 [facility] Endo - Time Out Audit 08/27/20 09:54:04 Property Utilization Officer: [id number] Modifier: [id number] 1 <*> Procedure to be Performed Esophagogastroduodenoscopy Case Comments <None> Finalized By: Angelina Apple RN Document Signatures Signed By: Angelina Apple RN 08/27/20 09:56 Electronically signed by Betsy [facility] Conversion Operations [employer] at 08/12/2022 8:25 AM CDT documented in this encounter Plan of Treatment Not on file documented as of this encounter Visit Diagnoses Not on filedocumented in this encounter
== END 2025-04-16 23:59 | disposition home or self-care (01) ==
LOC: LAB.DROPOF 04-17 13:19
PROVIDERS: PCP Nurse Practitioner Family; Visit Provider Student in an Organized Health Care Education/Training Program
DX: R52 Pain, unspecified (principal)
CPT/HCPCS: 87631

== ENCOUNTER 2025-04-24 16:46 | Outpatient (CLI) | payer BC, SELFPAY ==
--- NOTE | 2025-04-24 16:47 | MR_ITS ---
PROCEDURE INFORMATION: Exam: MR Thoracic Spine Without Contrast Exam date and time: 04/24/2025 4:46 PM Age: 19 years old Clinical indication: Pain in thoracic spine; Pain in mid back x 1 year TECHNIQUE: Imaging protocol: Magnetic resonance imaging of the thoracic spine without contrast. COMPARISON: CR XR MULTIPLE SPINE 6+V 02/01/2025 10:22 AM FINDINGS: Bones/joints: alignment is grossly normal. signal intensity within the bone marrow is normal. No subluxation-no perched or jumped facets. The facets are without acute process. No marrow edema Spinal cord: conus terminates at the mid aspect of L1. T1-T2: No significant spinal canal stenosis. T2-T3: No significant spinal canal stenosis. T3-T4: No significant spinal canal stenosis. T4-T5: No significant spinal canal stenosis. T5-T6: No significant spinal canal stenosis. T6-T7: No significant spinal canal stenosis. T7-T8: No significant spinal canal stenosis. T8-T9: No significant spinal canal stenosis. T9-T10: No significant spinal canal stenosis. T10-T11: No significant spinal canal stenosis. T11-T12: No significant spinal canal stenosis. T12-L1: No severe spinal canal stenosis. Soft tissues: Soft tissues are unremarkable. Impression IMPRESSION: unremarkable MRI thoracic spine.
--- OUTSIDE RECORDS SUMMARY | 2025-04-24 16:48 | XMS_ITS | Encounter Summary ---
Author Organization [employer] ([place], [place], [place], [place], [place]) Address [address] [place] [address] Care Team Providers Care Electronic Instrument Trades Worker Name Role Phone Unavailable Primary Care Provider Unavailabl e Encounter Details Date Type Department Care Team (Late st Contact Info) Description 08/27/2020 Transcribed Document [facility] [place] [facility] [place] [address] ProviderJame MD [address] [place] [address] Social History Tobacco Use Types [...] activities are safe for you. ??? Take omat-pnf-wtsdias and prescription medicines only as told by [...] provider. Document Revised: 04/15/2018 Document Reviewed: 11/26/2017 [email or web address] Patient Education ? 2020 [employer]. ESOPHAGOGASTRODUODENOSCOPY Care After Read the instructions outlined [...]
--- OUTSIDE RECORDS SUMMARY | 2025-04-24 16:48 | XMS_ITS | Referral Summary ---
Author Organization [employer] ([place], [place], [place], [place], [place]) Address [address] [place] [address] Care Team Providers Care Map Plotter Name Role Phone Unavailable Primary Care Provider [...]
--- OUTSIDE RECORDS SUMMARY | 2025-04-24 16:49 | XMS_ITS | Encounter Summary ---
Author Organization [employer] ([place], [place], [place], [place], [place]) Address [address] [place] [address] Care Team Providers Care Rig Welder Name Role Phone Unavailable Primary Care Provider Unavailabl e Encounter Details Date Type Department Care Team (Late st Contact Info) Description 08/27/2020 Transcribed Document [facility] [place] [facility] [place] [address] ProviderJame MD [address] [place] [address] Social History Tobacco Use Types [...] Jame ProviderMD - 08/27/2020 9:00 AM CDT [facility] Melissa PreOp Summary Primary Physician: NUBIA DACOSTA MD-GAE Finalized Date/Time: 08/27/20 08:42:49 Pt. Name: MONTY RANDHAWA/Sex: 2005 Female Med Rec #: [id number] Physician: NUBIA DACOSTA MD-GAE Financial #: [id number] Pt. Type: O Room/Bed: END/ Admit/Disch: 08/27/20 07:55:00 - Institution: [facility] Melissa PreOp Case Times Entry 1 In Preop 08/27/20 08:30:00 Ready for Holding n/a Room Patient Ready for 08/27/20 08:42:00 Surgery Patient Out of Preop 08/27/20 08:42:00 Patient Out of n/a Holding Room Last Modified By: Olivia Damon RN 08/27/20 08:42:47 Finalized By: Olivia Damon RN Document Signatures Signed By: Olivia Damon RN 08/27/20 08:42 Electronically signed by Betsy [facility] Conversion Wrecker Operator Cerner at 08/12/2022 8:08 AM CDT documented in this encounter Plan of Treatment Not on file documented as of this encounter Visit Diagnoses Not on filedocumented in this encounter
--- OUTSIDE RECORDS SUMMARY | 2025-04-24 16:49 | XMS_ITS | Encounter Summary ---
Author Organization [employer] ([place], [place], [place], [place], [place]) Address [address] [place] [address] Care Team Providers Care Tray Service Worker Name Role Phone Unavailable Primary Care Provider Unavailabl e Encounter Details Date Type Department Care Team (Late st Contact Info) Description 08/27/2020 Transcribed Document [facility] [place] Medicine [address] [place] [address] ProviderJame MD [address] [place] [address] Social History Tobacco Use Types [...] Jame ProviderMD - 08/27/2020 10:09 AM CDT [facility] [address] [place], [place] [id number] MONTY RANDHAWA :2005 Visit Time:08/27/2020 What to [...] with NUBIA DACOSTA MD-GAE When Where: [address] [place] [address]- Medications What How Much When Instructions Next [...] activities are safe for you. ??? Take vbeo-mxg-fwnsnpl and prescription medicines only as told by [...] Reviewed: 11/26/2017 Kayleen Patient Education ?? 2020 [employer]. ESOPHAGOGASTRODUODENOSCOPY Care After Read the instructions outlined [...] Assistance with quitting is available by contacting 0-786-WMJE-NOW. This is a free resource providing counseling, [...] was given the opportunity to ask questions. Patient/Manager Architectural Name: Patient/Manager Architectural Signature: Relationship to Patient: Clinician/Hospital Manager Architectural Signature: Date: documented in this encounter Plan of Treatment Not on file documented as of this encounter Visit Diagnoses Not on filedocumented in this encounter
--- OUTSIDE RECORDS SUMMARY | 2025-04-24 16:49 | XMS_ITS | Data Portability ---
Author Organization [facility] FIORELLA Zee [place] [facility] Address [address] [place] [address] Assessment No assessment recorded. Plan of Treatment [...] contr ast No observ ation record ed. [address], [place], [address], 01/25/2023 07:26:32 01/22/20 23 12/27/2022 MRI, knee, w/o contr ast No observ ation record ed. [address], [place], [address], 01/25/2023 07:26:46 Result Notes None recorded. Medical Equipment None Reported. Allergies Allergen ID Allergen Name Allergen Category Reaction Reaction Severity Criticality Documentation Date Start Date Code Code System Note Provider Name and Address Organization Details Recorded Time [id number] amoxicill in medicatio n Not available Not available Not available 01/26/2023 723 RxNorm Joann bhatti [facility] 15:11:34 Medications Name Sig Start Date Stop [...] 01/26/2023 170.18 cm 99 % 38.4 kg/m2 424672. 13 g 8 Joann Xiong [facility] 15:13:35 Social History None recorded. Functional Status None recorded. Mental Status None recorded. Family History Nothing Reported. Medical History No medical history recorded. Gynecological HistoryNo gynecological history recorded. Obstetrics History GPAL:G 0 P 0 0 0 0 Past Encounters Encounter ID Performer Location Encounter Start Date Encounter Closed Date Diagnosis/Indication Diagnosis SNOMED-CT Code Diagnosis ICD10 Code Diagnosis IMO Codes Diagnosis Note [id number] QM_[facility]POR[facility] [address] 07/27/2016 20:23:45 07/27/2016 20:23:45 [id number] VALENCIA PAINTER MD [facility] [address] [address] 01/26/2023 14:53:12 01/26/2023 16:05:27 Contusion of right knee [id number] S80.01XA Assessment : Contusion of lateral compartmen [...] ID Guarantor Name 01/26/2023 1 [employer] [id number] Tiffany Ramos Leal [id number] Monty Ramírez Mel Notes Date Note [...] for about 2.5 weeks. VALENCIA PAINTER MD [facility] [place], [address], [facility] 01/26/2023 16:17:48 OBGyn Episode No OBEpisode recorded.
--- OUTSIDE RECORDS SUMMARY | 2025-04-24 16:49 | XMS_ITS | Encounter Summary ---
Author Organization [employer] ([place], [place], [place], [place], [place]) Address [address] [place] [address] Care Team Providers Care Courier Delivery Driver Name Role Phone Unavailable Primary Care Provider Unavailabl e Encounter Details Date Type Department Care Team (Late st Contact Info) Description 08/27/2020 Transcribed Document [facility] [place] Family Medicine [facility] [address] ProviderJame MD [facility] [place] [address] Social History Tobacco Use Types [...] Jame ProviderMD - 08/27/2020 9:50 AM CDT [facility] Endo IntraOp Summary Primary Physician: NUBIA DACOSTA MD-GAE Finalized Date/Time: 08/27/20 09:56:41 Pt. Name: MONTY RANDHAWA/Sex: 2005 Female Med Rec #: [id number] Physician: NUBIA DACOSTA MD-GAE Financial #: [id number] Pt. Type: O Room/Bed: END/ Admit/Disch: 08/27/20 07:55:00 - Institution: [facility] Endo - Case Attendance Entry 1 Entry 2 Entry 3 Case Attendee NUBIA DACOSTA MD-GAE CORNEA, MD ARSLAN-CATARINA WANG GROMMET MACHINE OPERATOR Role Performed Surgeon/Proceduralist, Anesthesiologist of GROMMET MACHINE OPERATOR/Nurse Resident Physician In Radiology First Record Time In 08/27/20 09:50:00 08/27/20 [...] Attendee Angelina Apple, LILLY MOLINA Role Performed Senior Informatica Developer, First Scrub, First Time In 08/27/20 09:30:00 08/27/20 09:30:00 Time Out 08/27/20 09:59:00 08/27/20 09:59:00 Procedure Esophagogastroduodenosco Esophagogastroduodenosco py, Esophageal Biopsy, py, Esophageal Biopsy, Duodenal Biopsy, Duodenal Biopsy, Gastric Biopsy Gastric Biopsy Other Attendee Superficial Wound Closed By: Last Modified By: Angelina Apple RN Springate, Samantha, RN 08/27/20 09:56:20 08/27/20 09:56:20 [facility] Endo - Case Attendance Audit 08/27/20 09:56:20 Relationship Manager: [id number] Modifier: [id number] <+> Time Out 1 <*> Procedure [...] Biopsy, Duodenal Biopsy, Gastric Biopsy 08/27/20 09:54:03 Relationship Manager: [id number] Modifier: [id number] 1 <*> Procedure Esophagogastroduodenoscopy 2 <*> Procedure Esophagogastroduodenoscopy 3 <*> Procedure Esophagogastroduodenoscopy 4 <*> Procedure Esophagogastroduodenoscopy 5 <*> Procedure Esophagogastroduodenoscopy 08/27/20 09:50:22 Relationship Manager: [id number] Modifier: [id number] 1 <*> Time In 08/27/20 09:30:00 1 <*> Procedure Esophagogastroduodenoscopy 08/27/20 09:36:40 Relationship Manager: [id number] Modifier: [id number] 1 <*> Procedure Esophagogastroduodenoscopy 2 <+> Time In 2 <*> Procedure Esophagogastroduodenoscopy 3 <+> Time In 3 <*> Procedure Esophagogastroduodenoscopy 4 <+> Time In 4 <*> Procedure Esophagogastroduodenoscopy 5 <+> Time In 5 <*> Procedure Esophagogastroduodenoscopy 08/27/20 09:33:16 Relationship Manager: [id number] Modifier: [id number] <+> Time In 1 <*> Procedure Esophagogastroduodenoscopy <+> 2 Case Attendee <+> 2 Role Performed <+> 2 Procedure <+> 3 Case Attendee <+> 3 Role Performed <+> 3 Procedure <+> 4 Case Attendee <+> 4 Role Performed <+> 4 Procedure <+> 5 Case Attendee <+> 5 Role Performed <+> 5 Procedure [facility] Endo - Case times Entry 1 Patient In Room Time 08/27/20 09:30:00 Out Room Time 08/27/20 09:59:00 Anesthesia Start Time 08/27/20 09:30:00 Stop Time 08/27/20 09:59:00 Surgery / Procedure Times Start Time 08/27/20 09:50:00 Stop Time 08/27/20 09:56:00 Last Modified By: Angelina Apple RN 08/27/20 09:56:19 [facility] Endo - Case times Audit 08/27/20 09:56:19 Relationship Manager: [id number] Modifier: [id number] <+> 1 Out Room Time <+> 1 Stop Time <+> 1 Stop Time 08/27/20 09:51:07 Relationship Manager: [id number] Modifier: [id number] <+> 1 Start Time [facility] Endo - Cultures and Spec Summary Entry 1 Cultrures and Specimens Specimen Ordered: Yes Test(s) Routine/Path-Lab Requested/Final Disposition Last Modified By: Angelina Apple RN 08/27/20 09:54:10 [facility] Endo - Delays Entry 1 Delay Reason Other Duration 0 Minute(s) Last Modified By: Angelina Apple RN 08/27/20 09:35:16 [facility] Endo - Departure from OR Entry 1 Integumentary Assessment Integumentary WDL Assessment WDL Transfer/Handoff Transfer to PACU Phase I Post-op Transport Stretcher/Gurney Via Patient Transport Angelina Apple, Accompanied by RN, CATARINA CALVILLO CRNA Last Modified By: Angelina Apple RN 08/27/20 09:35:20 [facility] Endo - Endoscopy Details Entry 1 Abdomen Procedure Soft, Non-Tender Assessment Procedure Abdomen 08/27/20 09:30:00 Assessment D/T Radio Frequency Ablation Abdominal Pressure Last Modified By: Angelina Apple RN 08/27/20 09:35:34 [facility] Endo - Fire Risk Assessment Entry [...] Modified By: Angelina Apple RN 08/27/20 09:35:41 [facility] Endo - General Case Television Production Assistant 1 Case Information OR Endo 03 [facility] Case Level 1 Room Verified Yes Wound Class II - Clean-Contaminated Specialty Gastroenterology Anesthesia Type MAC ASA Class 2 Diagnosis Preop Diagnosis Abdominal pain, GERD Postop Same As Preop No Postop Diagnosis Normal Last Modified By: Angelina Apple RN 08/27/20 09:56:29 [facility] Endo - General Case Data Audit 08/27/20 09:56:29 Relationship Manager: [id number] Modifier: [id number] <+> 1 Postop Same As Preop <+> 1 Postop Diagnosis [facility] Endo - Intraoperative Assessment Entry 1 Valid History / Yes Physical in Chart Preoperative Yes Checklist Reviewed/Evaluated Patient is Latex No Sensitive Level of WDL Consciousness (WDL = Alert, Oriented to Person, Place, and Time) Last Modified By: Angelina Apple RN 08/27/20 09:36:09 [facility] Endo - Intraoperative Equipment Entry 1 Equipment Intraop Monitoring Electrocardiogram Three lead placement (ECG) Electrode Placement Blood Pressure Arm, left upper Location Pulse Oximeter Hand, right Probe Site Antiembolic Devices Scopes Flexible Endoscopes Gastroscope Used Scope Serial B Number/Identificatio n Number Photo/Video Documentation Photo Yes Video No Last Modified By: Angelina Apple RN 08/27/20 09:36:19 [facility] Endo - Patient Positioning Entry 1 [...] Modified By: Angelina Apple RN 08/27/20 09:54:04 [facility] Endo - Patient Positioning Audit 08/27/20 09:54:04 Relationship Manager: [id number] Modifier: [id number] 1 <*> Procedure Esophagogastroduodenoscopy [facility] Endo - Sign In Entry 1 Patient, Site, Yes Procedure Identified Surgical Consent Yes Confirmed Surgical Site N/A Marked by person performing procedure Airway Hypothermia Risk No Warming Measures No Taken Last Modified By: Angelina Apple RN 08/27/20 09:36:38 [facility] Endo - Sign Out Entry 1 [...] Modified By: Angelina Apple RN 08/27/20 09:56:38 [facility] Endo - Surgical Procedures Entry 1 Entry 2 Entry 3 Procedure Esophagogastroduodenosco Esophageal Biopsy Duodenal Biopsy py Modifiers Additional proximal and distal Procedure Description Primary Procedure Yes No No Primary Surgeon NUBIA DACOSTA MD-GAE MARTIN, KATHLEEN, MD-GAE MARTIN, KATHLEEN, MD-GAE Start 08/27/20 09:50:00 08/27/20 09:50:00 08/27/20 09:50:00 Stop 08/27/20 09:56:00 08/27/20 09:56:00 08/27/20 09:56:00 Physician States Cecum Reached Anesthesia Type MAC [place] [facility] [place] Gastro[place]ology Gastroenterology Gastroenterology Wound Class II - Clean-Contaminated II - Clean-Contaminated II - Clean-Contaminated Last Modified By: Angelina Apple, Angelina Ocampo RN Springate, Samantha, RN 08/27/20 09:56:30 08/27/20 09:56:30 08/27/20 09:56:30 Entry 4 Procedure Gastric Biopsy Modifiers Additional Procedure Description Primary Procedure No Primary Surgeon NUBIA DACOSTA MD-GAE Start 08/27/20 09:50:00 Stop 08/27/20 09:56:00 Physician States Cecum Reached Anesthesia Type [facility] [place] Wound Class II - Clean-Contaminated Last Modified By: Angelina Apple RN 08/27/20 09:56:30 [facility] Endo - Surgical Procedures Audit 08/27/20 09:56:30 Relationship Manager: [id number] Modifier: [id number] <+> 1 Stop <+> 2 Stop <+> 3 Stop <+> 4 Stop 08/27/20 09:53:57 Relationship Manager: [id number] Modifier: [id number] <+> 1 Start <+> 2 Procedure <+> [...] Class <+> 4 Anesthesia Type 08/27/20 09:36:52 Relationship Manager: [id number] Modifier: [id number] 1 <*> Procedure Esophagogastroduodenoscopy 1 <+> Specialty [facility] Endo - Time Out Entry 1 [...] Modified By: Angelina Apple RN 08/27/20 09:54:04 [facility] Endo - Time Out Audit 08/27/20 09:54:04 Relationship Manager: [id number] Modifier: [id number] 1 <*> Procedure to be Performed Esophagogastroduodenoscopy Case Comments <None> Finalized By: Angelina Apple RN Document Signatures Signed By: Angelina Apple RN 08/27/20 09:56 Electronically signed by [facility] Conversion Repack Room Worker Cerner at 08/12/2022 8:25 AM CDT documented in this encounter Plan of Treatment Not on file documented as of this encounter Visit Diagnoses Not on filedocumented in this encounter
--- OUTSIDE RECORDS SUMMARY | 2025-04-24 16:49 | XMS_ITS | Encounter Summary ---
Author Organization [employer] ([place], [place], [place], [place], [place]) Address [address] [place] [address] Care Team Providers Care Pen Ruler Operator Name Role Phone Unavailable Primary Care Provider Unavailabl e Encounter Details Date Type Department Care Team (Late st Contact Info) Description 08/27/2020 Transcribed Document [facility] [place] [facility] [place] [address] ProviderJame MD [facility] [place] [address] Social History Tobacco Use Types [...] Jame ProviderMD - 08/27/2020 9:50 AM CDT [facility] PACU Summary Primary Physician: NUBIA DACOSTA MD-GAE Finalized Date/Time: 08/27/20 10:31:53 Pt. Name: MONTY RANDHAWA/Sex: 2005 Female Med Rec #: [id number] Physician: NUBIA DACOSTA MD-GAE Financial #: [id number] Pt. Type: O Room/Bed: END/ Admit/Disch: 08/27/20 07:55:00 - Institution: [facility] PACU Case Times Entry 1 In PACU I 08/27/20 09:59:00 Ready for PACU 08/27/20 10:31:00 Discharge Discharge from PACU 08/27/20 10:31:00 I Last Modified By: Nereyda Power RN-PATIENT CARE BEDSIDE NON-EXEMPT 08/27/20 10:31:51 [facility] Endo PACU Case Times Audit 08/27/20 10:31:51 Manager Materials Management: TIM Modifier: [email or web address] <+> 1 Ready for [...]
--- OUTSIDE RECORDS SUMMARY | 2025-04-24 16:49 | XMS_ITS | Clinical Summary ---
Author Organization [facility] Address [address] [place] [address] Care Team Providers Care Millwright Instructor Name Role Phone Nina Melara WILBUR Primary [...] Health Maintenance Due Date Last Done Comments Meningococcal ACWY (2 - 2-dose series) 2020 11/12/2015 Annual SDOH Screening 04/26/2024 Depression Screening 04/26/2024 Influenza Vaccine (#1) 2024 , 01/18/2017, 01/15/2016, Additional history exists Tdap/Td Vaccine >11 yo (7 - Td or Tdap) 11/11/2025 11/12/2015, 01/18/2009, 02/16/2006, Additional history exists Haemophilus Influenzae Type B (Hib) Vaccine Completed 02/16/2006, 05/15/2005, 03/13/2005, Additional history exists Hepatitis B (HepB) Vaccine Completed 02/16, 01/13/2005, 2004 Polio (IPV) Completed 01/18/2009, 01/25, 05/15/2005, Additional history exists HPV Vaccine Completed 07/21/2016, 12/26, 11/12/2015 Hepatitis A (HepA) Vaccine Completed 02/17/2018, Pneumococcal Vaccines 6-49 yo Risk Aged Out No longer eligible based on patient's age to complete this topic Rotavirus (RV) Vaccine Aged Out No lo nger eligible based on patient's age to complete this topic Insurance [place] [id number] ANTHEM Care Teams Millwright Instructor Relationship Specialty Start Date End Date Nina Melara APRN [address] [facility] [address] [facility], [address] [place] [id number] PCP - General Nurse Practitioner Family 12/18/21
--- OUTSIDE RECORDS SUMMARY | 2025-04-24 16:49 | XMS_ITS | Clinical Summary ---
Author Organization [employer] ([place], [place], [place], [place], [place]) Address [address] [place] [address] Care Team Providers Care Cmv Driver Name Role Phone Unavailable Primary Care [...]
--- OUTSIDE RECORDS SUMMARY | 2025-04-24 16:49 | XMS_ITS | Clinical Summary ---
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
--- OUTSIDE RECORDS SUMMARY | 2025-04-24 16:49 | XMS_ITS | Encounter Summary ---
Author Organization [employer] ([place], [place], [place], [place], [place]) Address [address] [place] [address] Care Team Providers Care Bread Dough Mixer Name Role Phone Unavailable Primary Care Provider Unavailabl e Encounter Details Date Type Department Care Team (Late st Contact Info) Description 08/27/2020 Transcribed Document [facility] [place] [facility] [place] [address] ProviderJame MD [address] [place] [address] Social History Tobacco Use Types [...] Source : Stated Height Entry Format : [place] Height, Feet : 5 ft(Converted to: 152 cm, 60 Inch) Height, Inches : 7 Inch(Converted to: 0 ft 7 Inch, 17.78 cm) Clinical Height : 170.18 cm Weight Source : Standing scale Weight Entry Format : [place] Clinical Dosing Weight : 101.36 kg Weight, Pounds : 223 lb Body Surface Area (BSA) : 2.12 m2 Body Mass Index : 35 kg/m2 (HI) [place] Body Weight : 61 kg Olivia Damon [...] Olivia Damon RN - 08/27/2020 8:35 EDT [place] Suicide Severity Rating Scale (C-SSRS) CSSRS Past [...] Contact #2 Relationship : Primary Language : Panamanian Communication Barrier : None Plugger Worker Needed : No Olivia Damon RN - [...] No impairment [place]iter Moisture : Rarely moist [place] Activity : Walks frequently [place]iter Mobility : [...] Scale Risk Level : 0-24 Low Risk [place] Fall Interventions : Adequate lighting, Assistive devices [...]
== END 2025-04-24 23:59 | disposition home or self-care (01) ==
LOC: RAD 16:46
PROVIDERS: PCP Nurse Practitioner Family; Visit Provider Nurse Practitioner Family
DX: M54.6 Pain in thoracic spine (principal); G89.29 Other chronic pain
CPT/HCPCS: 72146